=== PATIENT | male | born 1940 | race Caucasian/White ===

== ENCOUNTER 2019-03-30 19:31 | Inpatient (IN) ==
[2019-03-30] MEDS ORDERED: SODIUM CHLORIDE 0.9% 500 ML IV ONE (19:36)
[2019-03-30] MEDS ORDERED: ASPIRIN CHEW 324 MG ONE (19:40)
[2019-03-30] MEDS ORDERED: ASPIRIN CHEW 324 MG PO STA (19:41)
[2019-03-30] MEDS ORDERED: fentaNYL citrate 100 MCG/2 ML VIAL IV STA ×2 (19:41→20:02)
[2019-03-30] MEDS ORDERED: fentaNYL citrate 100 MCG/2 ML VIAL ONE ×2 (19:42→20:03)
[2019-03-30] MEDS ORDERED: TICAGRELOR 90 MG TAB PO ONE (19:44)
[2019-03-30] MEDS ORDERED: HEPARIN SOD (PORCINE) 1000 UNIT/ML 10 ML VIAL IV ONE (19:44)
--- NOTE | 2019-03-30 19:55 | XRay Report ---
XR chest 1V portable CLINICAL HISTORY: Chest Pain dyspnea COMPARISON STUDY: No previous studies for comparison. FINDINGS: Unremarkable cardiac shadow. Slight interstitial prominence bilaterally. No focal infiltrat e. Diaphragms are smooth. IMPRESSION: Slight interstitial prominence potentially indicative of mild bronchitis. The above report was generated using voice recognition software. It may contain grammatical, syntax or spelling errors. Electronically signed by: Jordy Rhoades M.D. 03/30/2019 7:53 PM
[2019-03-30 20:00] LABS: Basophils # (auto) 0.01 K/uL (0-0.2); Basophils % (auto) 0.1 %; Eosinophils # (auto) 0.16 K/uL (0-0.5); Eosinophils % (auto) 1.4 %; Hematocrit (blood only) 42.3 % (42-52); Hemoglobin 14.1 g/dL (14.0-18.0); Immature Granulocytes # (auto) 0.03 K/uL (0.00-0.02); Immature Granulocytes % (auto) 0.3 %; Lymphocytes # (auto) 3.07 K/uL (1.2-3.4); Lymphocytes % (auto) 27.2 %; Mean Corpuscular Hemoglobin 31.9 pg (25-34); Mean Corpuscular Hgb Conc 33.3 g/dL (32-36); Mean Corpuscular Volume 95.7 fL (80-100); Mean Platelet Volume 9.7 fL (7.4-10.4); Monocytes # (auto) 0.89 K/uL (0.11-0.59); Monocytes % (auto) 7.9 %; Neutrophils # (auto) 7.14 K/uL (1.4-6.5); Neutrophils % (auto) 63.1 %; Platelet Count 184 K/uL (130-400); RDW Coefficient of Variation 14.9 % (11.5-14.5); RDW Standard Deviation 52.6 fL (36.4-46.3); Red Blood Count 4.42 M/uL (4.7-6.1)
[2019-03-30 20:02] LABS: iSTAT Hemoglobin 14.6 g/dl (14.0-18.0); iSTAT Ionized Calcium 1.24 mmol/l (1.12-1.32); iSTAT Potassium 3.9 mEq/L (3.3-5.0)
[2019-03-30] MEDS ORDERED: HEPARIN (PORCINE) 1000 UNIT/ML 10 ML (CATH LAB USE ONLY) ONE (20:02)
[2019-03-30] MEDS ORDERED: NiCARDipine HCL INJ 2.5 MG/ML 10 ML AMP ONE (20:03)
[2019-03-30] MEDS ORDERED: NITROGLYCERIN/D5W 100MCG/ML 20ML SYR ONE (20:03)
[2019-03-30] MEDS ORDERED: MIDAZOLAM HCL 1 MG/ML 2ML VIAL ONE (20:03)
[2019-03-30 20:09] LABS: Prothrombin Time 10.7 Seconds (9.0-12.0)
[2019-03-30 20:16] LABS: Alanine Aminotransferase 37 U/L (12-78); Albumin Level 4.1 gm/dl (3.4-5.0); Aspartate Aminotransferase 32 U/L (15-37); BUN Creatinine Ratio 13.8 (10-20); Blood Urea Nitrogen 16 mg/dl (7-18); Calcium 9.5 mg/dl (8.5-10.1); Carbon Dioxide 27 mmol/L (21-32); Chloride 105 mmol/L (98-107); Est GFR (African American) 72.8; Est GFR (Non-African American) 62.8; Glucose 177 mg/dl (70-99); Lipase 73 U/L (73-393); Magnesium 1.6 mg/dl (1.8-2.4); Potassium 3.9 mmol/L (3.5-5.1); Sodium 138 mmol/L (136-145)
--- NOTE | 2019-03-30 20:18 | Pre Anesthesia Assessment ---
Date of Service March 30, 2019 Pre Sedation Assessment Vital Signs Temp Pulse Resp BP Pulse Ox 03/30/19 20:13 16 100 03/30/19 20:00 89 19 167/97 H 99 03/30/19 19:53 99 03/30/19 19:49 89 23 166/89 H 96 03/30/19 19:45 94 H 18 03/30/19 19:42 90 32 H 03/30/19 19:40 90 24 173/94 H 03/30/19 19:31 97.3 F L 83 18 179/82 H 96 Cardiovascular RRR, no murmur, no edema Respiratory normal respiratory effort, lungs clear to auscultation Pre-Sedation Airway Assessment Smoking Status: Current every day smoker Hx Sleep Apnea: No Hx Difficult Intubation: No Short, Thick Neck: No Thyromental Distance: > or= 3.5 Finger Breadths Oral Cavity: + WNL Mallampati Class: III ASA: ASA4 Procedure Planning Contraindications for Sedation: none Current Medications Reviewed: Yes Notes The planned sedation has been discussed with the patient. Informed Consent was obtained. I have identified the patient, determined the appropriateness of sedation and have assessed the patient immediately prior to the procedure. All medicine(s) and interventions are by my order.
[2019-03-30 20:21] LABS: Albumin Globulin Ratio 1.2 (0.9-2); Alkaline Phosphatase 98 U/L (45-117); Bilirubin,Total 0.5 mg/dl (0.2-1); Globulin 3.4 gm/dl (2.5-4.0); Phosphorus 1.6 mg/dl (2.5-4.9); Total Protein 7.5 gm/dl (6.4-8.2); Troponin I 0.015 ng/ml (0-0.045)
--- NOTE | 2019-03-30 20:25 | Cardiology Consultation ---
Date of Consultation March 30, 2019 Assessment & Plan (1) ST elevation myocardial infarction (STEMI): Presentation consistent with inferior STEMI and recommend proceeding with emergent cardiac catheterization and likely primary PCI. No apparent contraindications to procedure. Discussed risks, benefits, alternatives of procedure with patient and they are willing to proceed. Further recommendations pending findings of coronary angiography. History of Present Illness History of Present Illness 78-year-old man here with acute chest pain and ECG concerning for acute CA. Patient seen emergently in the ED after heart alert activated on arrival. Past cardiac history remarkable for prior CA in May 2000 treated with PCI with bare-metal stent (3.0 x 23 MultiLink) to RCA. Prior cardiac care in [place] and has not been seen for years. Cardiac risk factors include hypertension, dyslipidemia, obesity and ongoing tobacco abuse (1 pack/day). Other medical issues include GERD, degenerative disc disease/lumbar stenosis with neuropathy post multiple laminectomies. Chest pain began approximately 2 hours prior to arrival while patient was out hunting. Describes substernal pressure reminiscent of prior CA and with associated nausea, shortness of breath. Pain improved with fentanyl and given aspirin in ED. Hemodynamically stable. EKG showed sinus rhythm with inferior ST elevations. Family history: Father had an CA in his 70s Social history: Ongoing tobacco abuse, 1 pack/day. 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 , with 2 sons. Allergies: Penicillins Allergies Allergy/AdvReac Type Severity Reaction Status Date / Time Penicillins Allergy Mild HIVES Verified 03/30/19 20:21 Sulfa (Sulfonamide Allergy Unknown UNKNOWN Verified 03/30/19 20:21 Antibiotics) Home Medications Home Medications Medication Instructions Recorded Confirmed Type allopurinol 300 mg PO DAILY 03/30/19 03/30/19 History amitriptyline 50 mg PO HS 03/30/19 03/30/19 History amlodipine 5 mg PO DAILY 03/30/19 03/30/19 History atorvastatin 20 mg PO HS 03/30/19 03/30/19 History cholecalciferol (vitamin D3) 5,000 unit PO DAILY 03/30/19 03/30/19 History [Vitamin D3] gabapentin 600 mg PO TID 03/30/19 03/30/19 History gemfibrozil 600 mg PO QAM 03/30/19 03/30/19 History hydrocodone-acetaminophen 1 tab PO Q6H PRN 03/30/19 03/30/19 History dlhftxrg-jco-AQ-lycopen-lutein 1 tab PO DAILY 03/30/19 03/30/19 History [Pradeepry Senior] naproxen 500 mg PO BID 03/30/19 03/30/19 History niacin 1,000 mg PO HS 03/30/19 03/30/19 History omeprazole 20 mg PO DAILY 03/30/19 03/30/19 History tamsulosin 0.4 mg PO QAM 03/30/19 03/30/19 History Patient History Medical History Myocardial infarction Surgical History H/O heart artery stent Social History Preferred Language: Slovenian Communication Ability: Effective Neighborhood Worker Required: No Beliefs That Will Affect Care: None marital status: Current Living Situation: Spouse Other Information That Helps Us Care for You: No Feels Safe at Home: Yes Smoking Status: Current every day smoker Tobacco Type: cigarettes ; Age Started Using Tobacco: 18 ; packs per day: 1 ; Do You Dip or Chew Tobacco: No ; Second Hand Exposure: No ; Tobacco Cessation Education Requested by Patient: No Hx Alcohol Use: No Hx Substance Use: No Review of Systems Review of Systems: Not obtained in the setting of emergent situation Physical Exam Physical Exam: General: Comfortable, no acute distress HEENT: Sclerae anicteric, mucous membranes moist Lungs: Clear to auscultation bilaterally, no rhonchi or wheezes Cardiac: Regular rate and rhythm, no murmurs. No JVD. Abdomen: Soft, nontender, nondistended, positive bowel sounds. Extremities: Warm, well perfused, no edema. 2+ radial pulses Skin: No rashes or lesions. Neuro: Nonfocal Psych: Alert orient x3, normal affect and mood Results & Data Vital Signs (Past 12 Hours) Vital Signs Temp Pulse Resp BP Pulse Ox 03/30/19 20:13 16 100 03/30/19 20:00 89 19 167/97 H 99 03/30/19 19:53 99 03/30/19 19:49 89 23 166/89 H 96 03/30/19 19:45 94 H 18 03/30/19 19:42 90 32 H 03/30/19 19:40 90 24 173/94 H 03/30/19 19:31 97.3 F L 83 18 179/82 H 96 PG Care Time/CCT Total # of Minutes Spent Total Time Spent with Patient: Total time spent is greater than 50% in coordination of care (as documented) at patient's floor/unit and/or counseling patient:
[2019-03-30] MEDS ORDERED: CALCIUM CHLORIDE 10% 10 ML SYR IV ONE (20:42)
[2019-03-30] MEDS ORDERED: LIDOCAINE 2% 20 MG/ML 5 ML SYR IV ONE (20:43)
[2019-03-30] MEDS ORDERED: ATROPINE SULFATE 0.1 MG/ML 10ML SYR IV ONE (20:43)
[2019-03-30] MEDS ORDERED: ONDANSETRON INJ 2 MG/ML 2 ML VIAL ONE (20:45)
[2019-03-30] MEDS ORDERED: ICU PROTOCOL FOR HYPERGLYCEMIA PRN (21:48)
--- NOTE | 2019-03-30 21:48 | Post Anesthesia Assessment ---
Date of Service March 30, 2019 Post Sedation Assessment Vital Signs Temp Pulse Resp BP Pulse Ox 03/30/19 20:13 16 100 03/30/19 20:00 89 19 167/97 H 99 03/30/19 19:53 99 03/30/19 19:49 89 23 166/89 H 96 03/30/19 19:45 94 H 18 03/30/19 19:42 90 32 H 03/30/19 19:40 90 24 173/94 H 03/30/19 19:31 97.3 F L 83 18 179/82 H 96 Recovery Score Activity: Moves 4 extremities Respiration: Deep Breath/Cough Circulation: +/-20% PreAnes Value Consciousness: Fully Awake Oxygen Saturation: O2 needed for >90% Discharge Sedation Level of Care: Fast Track Phase II Post Sedation Plan On clinical assessment, the patient appears to have tolerated the sedation without complications. Patient is recovering as anticipated. Patient will continue to be monitored by nursing and may be discharged when sedation discharge criteria are met per below protocol. Upon Completions of procedure up to 15 minutes continue every 5 minute vital signs and the P.A.R. score; then discharge to a Phase I or Fast Track to Phase II per the following guidelines: * Discharge Patient to appropriate Phase II area if PAR is 8 or greater or return to pre- procedure baseline. The post - procedure orders will be as directed. * If PAR score is less than 8 or not return to pre-procedure baseline then patient will follow Phase I monitoring till PAR is reached for Phase II. The Phase I may be done in procedure room or may call to secure a Phase I area. * If naloxone or flumazenil are used for reversal, hold in Phase I for continued monitoring from when last reversal dose was given for a minimum of 60 minutes or longer pending the nurse and/or physician discretion of patient condition before discharge to Phase II. Please call the Sedation Physician to re-evaluate and complete post-note for discharge to Phase II area. Do NOT discharge from procedure sedation or Phase 1 until post- sedation evaluation note is complete by procedure /sedation MD Sedation Discharge Instructions to be given to the patient at discharge to home.
[2019-03-30] MEDS ORDERED: ONDANSETRON INJ 2 MG/ML 2 ML VIAL IV PRN (21:52)
[2019-03-30] MEDS ORDERED: NITROGLYCERIN SL 0.4 MG/TAB TAB SL PRN (21:52)
[2019-03-30] MEDS ORDERED: ACETAMINOPHEN 325 MG TAB PO PRN (21:52)
[2019-03-30] MEDS ORDERED: SODIUM CHLORIDE 0.9% 1000ML 1,000 ML IV SCH (22:00)
--- NOTE | 2019-03-30 22:12 | Emergency Department Note ---
Entered by Sarah Beth Evans acting as a scribe for History of Present Illness General Chief complaint: Chest Pain Stated complaint: CHEST PAIN Time Seen by Provider: 03/30/19 19:35 Source: patient and family (son) Mode of arrival: ambulatory Limitations: no limitations History of Present Illness Provider complaint: Chest pain Onset (ago): hour(s) 2 Location: chest Pain Consistency: + other (worsening) Maximum Pain Intensity: 9 Current Pain Intensity: 9 Quality: + other (pain) Relieved By: + none Associated symptoms: no cough and no fever/chills Treatments prior to arrival: other (Tums) The patient is a 78 year old male with a history of a myocardial infarction about 12 years ago and a cardiac stent who presents to the Emergency Room with complaints of worsening chest pain starting 2 hours ago. Per son, he and the patient had just returned to [place] after hunting and were getting something to eat when the patient started complaining of chest pain. He states that the patient initially thought that the pain was secondary to indigestion, but since Tums did not improve it, he decided to bring the patient to the ED. He notes that the patient did not take aspirin prior to arrival. The patient currently rates his pain a 9/10. He indicates that he felt fine prior to today and has not experienced any fevers and cough. Per son, the patient was evaluated in [place] during his prior myocardial infarction before being transferred to [place]. He explains that the patient lives in [place]. 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 Home Medications Home Medications Medication Instructions Recorded Confirmed Type allopurinol 300 mg PO DAILY 03/30/19 03/30/19 History amitriptyline 50 mg PO HS 03/30/19 03/30/19 History amlodipine 5 mg PO DAILY 03/30/19 03/30/19 History atorvastatin 20 mg PO HS 03/30/19 03/30/19 History cholecalciferol (vitamin D3) 5,000 unit PO DAILY 03/30/19 03/30/19 History [Vitamin D3] gabapentin 600 mg PO TID 03/30/19 03/30/19 History gemfibrozil 600 mg PO QAM 03/30/19 03/30/19 History hydrocodone-acetaminophen 1 tab PO Q6H PRN 03/30/19 03/30/19 History ijkmhfou-fth-PU-lycopen-lutein 1 tab PO DAILY 03/30/19 03/30/19 History [Pradeepry Senior] naproxen 500 mg PO BID 03/30/19 03/30/19 History niacin 1,000 mg PO HS 03/30/19 03/30/19 History omeprazole 20 mg PO DAILY 03/30/19 03/30/19 History tamsulosin 0.4 mg PO QAM 03/30/19 03/30/19 History Allergies Allergy/AdvReac Type Severity Reaction Status Date / Time Penicillins Allergy Mild HIVES Verified 03/30/19 20:21 Sulfa (Sulfonamide Allergy Unknown UNKNOWN Verified 03/30/19 20:21 Antibiotics) Past Med/Surg History Medical History Myocardial infarction Surgical History H/O heart artery stent Social History Preferred Language: Greek Communication Ability: Effective [employer] Lab[employer] Required: No Beliefs That Will Affect Care: None marital status: Current Living Situation: Spouse Other Information That Helps Us Care for You: No Feels Safe at Home: Yes Smoking Status: Never smoker Do You Dip or Chew Tobacco: No ; Second Hand Exposure: No ; Tobacco Cessation Education Requested by Patient: No Hx Alcohol Use: No Hx Substance Use: No Review of Systems See HPI for pertinent positives & negatives. and A total of 10 systems reviewed and were otherwise negative Physical Exam Vital Signs Vital Signs - 24 hr 03/30/19 19:31 03/30/19 19:40 03/30/19 19:42 Temperature 36.3 C L Temperature Source Oral Pulse Rate 83 90 90 Pulse Rate from SpO2 Sensor Respiratory Rate 18 24 32 H Respiratory Effort / Characteristics Non-Labored Respiratory Depth Normal Blood Pressure 179/82 H 173/94 H Blood Pressure Mean 114 134 Pulse Oximetry 96 Oxygen Delivery Method Room Air Sepsis Recent Fever Within 48 Hours No Sepsis Action Taken by Nursing No Action Required 03/30/19 19:45 03/30/19 19:49 03/30/19 19:53 Temperature Temperature Source Pulse Rate 94 H 89 Pulse Rate from SpO2 Sensor 90 Respiratory Rate 18 23 Respiratory Effort / Characteristics Respiratory Depth Blood Pressure 166/89 H Blood Pressure Mean 108 Pulse Oximetry 96 99 Oxygen Delivery Method Room Air Sepsis Recent Fever Within 48 Hours Sepsis Action Taken by Nursing 03/30/19 20:00 03/30/19 20:13 Temperature Temperature Source Pulse Rate 89 Pulse Rate from SpO2 Sensor 88 Respiratory Rate 19 16 Respiratory Effort / Characteristics Respiratory Depth Blood Pressure 167/97 H Blood Pressure Mean 133 Pulse Oximetry 99 100 Oxygen Delivery Method Room Air Room Air Sepsis Recent Fever Within 48 Hours Sepsis Action Taken by Nursing GENERAL: Awake, alert, fatigued-appearing, uncomfortable. HENT: Normocephalic, atraumatic. Oropharynx with dry mucous membranes and otherwise unremarkable. EYES: Normal conjunctiva. Sclera non-icteric. NECK: Supple. No nuchal rigidity. FROM. No JVD. RESPIRATORY: CTAB. CARDIAC: Regular rate, normal rhythm. Extremities warm and well perfused. Pulses equal. ABDOMEN: Soft, non-distended. No tenderness to palpation. No rebound or guarding. No masses. RECTAL: Deferred. MUSCULOSKELETAL: Chest examination reveals no tenderness. The back is symmetrical on inspection without obvious abnormality. There is no CVA tenderness to palpation. No joint edema. LOWER EXTREMITIES: Calves are equal size bilaterally and non-tender. No edema. No discoloration. NEURO: Normal sensorium. No sensory or motor deficits noted. SKIN: No rash or jaundice noted. Course Course 1937: The patient was evaluated in room B10, and a complete history and physical examination were performed. 2004: I reviewed the patient's case with Dr. Sorensen - Interventional Cardiology, [facility]. Dr. Sorensen will evaluate the patient now. 2006: I reviewed the patient's case with Dr. Dale - Hospitalist, [facility] for likely admission to his service. 2210: Dr. Dale informed me that the patient had 2 stents placed, so he will evaluate the patient for further management. Consultations Consultation #1: I reviewed the patient's case with Dr. Sorensen - Interventional Cardiology, [facility]. Dr. Sorensen will evaluate the patient now. Time: 20:05 Consultation #2: I reviewed the patient's case with Dr. Dale - Hospitalaide, [facility] for likely admission to his service. Time: 20:07 Consultation #3: Dr. Dale informed me that the patient had 2 stents placed, so he will evaluate the patient for further management. Time: 22:10 Administered Medications Discontinued Medications Aspirin (Aspirin) Confirm Administered Dose 324 mg .ROUTE .STK-MED ONE Stop: 03/30/19 19:41 Last Admin: 03/30/19 19:48 Dose: Not Given Documented by: [id number] Aspirin (Aspirin) 324 mg PO NOW STA Stop: 03/30/19 19:42 Last Admin: 03/30/19 19:48 Dose: 324 mg Documented by: [id number] Atropine Sulfate (Atropine Sulfate) Confirm Administered Dose 1 mg IV .STK-MED ONE Stop: 03/30/19 20:44 Last Admin: 03/30/19 21:41 Dose: 0.5 mg Documented by: [id number] Fentanyl Citrate (Fentanyl Citrate) 50 mcg IV NOW STA Stop: 03/30/19 19:42 Last Admin: 03/30/19 19:45 Dose: 50 mcg Documented by: [id number] Fentanyl Citrate (Fentanyl Citrate) Confirm Administered Dose 100 mcg .ROUTE .STK-MED ONE Stop: 03/30/19 19:43 Last Admin: 03/30/19 19:46 Dose: Not Given Documented by: [id number] Fentanyl Citrate (Fentanyl Citrate) Confirm Administered Dose 100 mcg .ROUTE .STK-MED ONE Stop: 03/30/19 20:04 Last Admin: 03/30/19 21:40 Dose: 100 mcg Documented by: [id number] Heparin Sodium (Porcine) (Heparin Iv Bolus (Sprinkler Tender Use Only)) Confirm Admin istered Dose 10,000 units .ROUTE .STK-MED ONE Stop: 03/30/19 20:03 Last Admin: 03/30/19 21:39 Dose: 8,000 units Documented by: [id number] Heparin Sodium/Sodium Chloride (Heparin/Nss 1000 Unit/500ml Flush Bag) Confirm Administered Dose 3,000 units IV .STK-MED ONE Stop: 03/30/19 20:04 Last Admin: 03/30/19 21:40 Dose: 3,000 units Documented by: [id number] Sodium Chloride (Nss) 500 mls @ 999 mls/hr IV .Q31M ONE Stop: 03/30/19 20:06 Last Admin: 03/30/19 19:48 Dose: 999 mls/hr Documented by: [id number] Midazolam HCl (Versed) Confirm Administered Dose 2 mg .ROUTE .STK-MED ONE Stop: 03/30/19 20:04 Last Admin: 03/30/19 21:41 Dose: 2 mg Documented by: [id number] Nicardipine HCl (Cardene) Confirm Administered Dose 25 mg .ROUTE .STK-MED ONE Stop: 03/30/19 20:04 Last Admin: 03/30/19 21:40 Dose: 25 mg Documented by: [id number] Nitroglycerin/Dextrose (Nitroglycerin/D5w 100 Mcg/Ml 20ml Syringe) Confirm Administered Dose 2,000 mcg .ROUTE .STK-MED ONE Stop: 03/30/19 20:04 Last Admin: 03/30/19 21:41 Dose: 2,000 mcg Documented by: [id number] Ondansetron HCl (Zofran) Confirm Administered Dose 4 mg .ROUTE .STK-MED ONE Stop: 03/30/19 20:46 Last Admin: 03/30/19 21:41 Dose: 4 mg Documented by: [id number] Ticagrelor (Brilinta) 180 mg PO ONE ONE Stop: 03/30/19 19:45 Last Admin: 03/30/19 21:46 Dose: 180 mg Documented by: [id number] Critical Care Time Critical Care Time: Yes Total Critical Care Time: 37 I have personally spent 37 minutes of critical care time in the direct management of this patient. This includes bedside care, interpretation of diagnostic studies, and testing, discussion with consultants, patient, and fam perico members, and other required patient management activities. This 37 minutes is in excess of all separately billable procedures. Medical Decision Making Differential Diagnosis Differential diagnosis includes: cardiac ischemia, aortic dissection, pulmonary embolism, pneumonia, pneumothorax, musculoskeletal, infections, pericarditis, myocarditis, esophageal rupture, gastrointestinal, as well as others were entertained. Medical Records Attestation: I reviewed the patient's medical records. Home Medications Current Medication List: was personally reviewed by me Laboratory Data Attestation: I reviewed the patient's lab results. Result diagrams: 03/30/19 19:40 03/30/19 19:40 Lab Results 03/30/19 03/30/19 03/30/19 Range/Units 19:40 19:40 19:40 WBC 11.30 H (4.8-10.8) K/uL RBC 4.42 L (4.7-6.1) M/uL Hgb 14.1 (14.0-18.0) g/dL POC Hgb (14.0-18.0) g/dl Hct 42.3 (42-52) % POC Hct (42-52) % MCV 95.7 (80-100) fL MCH 31.9 (25-34) pg MCHC 33.3 (32-36) g/dL RDW Std Deviation 52.6 H (36.4-46.3) fL RDW Coeff of Ludivina 14.9 H (11.5-14.5) % Plt Count 184 (130-400) K/uL MPV 9.7 (7.4-10.4) fL Immature Gran % (Auto) 0.3 % Neut % (Auto) 63.1 % Lymph % (Auto) 27.2 % Sebastian % (Auto) 7.9 % Eos % (Auto) 1.4 % Baso % (Auto) 0.1 % Immature Gran # (Auto) 0.03 H (0.00-0.02) K/uL Neut # (Auto) 7.14 H (1.4-6.5) K/uL Lymph # (Auto) 3.07 (1.2-3.4) K/uL Sebastian # (Auto) 0.89 H (0.11-0.59) K/uL Eos # (Auto) 0.16 (0-0.5) K/uL Baso # (Auto) 0.01 (0-0.2) K/uL PT 10.7 (9.0-12.0) Seconds POC INR (0.9-1.1) INR 1.0 (0.9-1.1) POC Sodium (135-144) mEq/L Sodium 138 (136-145) mmol/L POC Potassium (3.3-5.0) mEq/L Potassium 3.9 (3.5-5.1) mmol/L POC Chloride (101-112) mEq/L Chloride 105 (98-107) mmol/L Carbon Dioxide 27 (21-32) mmol/L POC Total CO2 (24-31) mEq/l Anion Gap 6.0 (3-11) POC Anion Gap (16-25) mmol/L POC BUN (7-18) mg/dl BUN 16 (7-18) mg/dl Creatinine 1.13 (0.6-1.4) mg/dl POC Creatinine (0.6-1.3) mg/dl Est Cr Clr Drug Dosing Not Reportable Est GFR ( Amer) 72.8 Est GFR (Non-Af Amer) 62.8 BUN/Creatinine Ratio 13.8 (10-20) Glucose 177 H (70-99) mg/dl POC Glucose (other) (70-99) mg/dl Calcium 9.5 (8.5-10.1) mg/dl POC Ioniz Calcium Justyn (1.12-1.32) mmol/l Phosphorus 1.6 L (2.5-4.9) mg/dl Magnesium 1.6 L (1.8-2.4) mg/dl Total Bilirubin 0.5 (0.2-1) mg/dl AST 32 (15-37) U/L ALT 37 (12-78) U/L Alkaline Phosphatase 98 (45-117) U/L POC Troponin I (0-0.045) ng/ml Troponin I 0.015 (0-0.045) ng/ml Total Protein 7.5 (6.4-8.2) gm/dl Albumin 4.1 (3.4-5.0) gm/dl Globulin 3.4 (2.5-4.0) gm/dl Albumin/Globulin Ratio 1.2 (0.9-2) Lipase 73 (73-393) U/L Blood Type Antibody Screen 03/30/19 03/30/19 03/30/19 Range/Units 19:40 19:47 19:48 WBC (4.8-10.8) K/uL RBC (4.7-6.1) M/uL Hgb (14.0-18.0) g/dL POC Hgb 14.6 (14.0-18.0) g/dl Hct (42-52) % POC Hct 43 (42-52) % MCV (80-100) fL MCH (25-34) pg MCHC (32-36) g/dL RDW Std Deviation (36.4-46.3) fL RDW Coeff of Ludivina (11.5-14.5) % Plt Count (130-400) K/uL MPV (7.4-10.4) fL Immature Gran % (Auto) % Neut % (Auto) % Lymph % (Auto) % Sebastian % (Auto) % Eos % (Auto) % Baso % (Auto) % Immature Gran # (Auto) (0.00-0.02) K/uL Neut # (Auto) (1.4-6.5) K/uL Lymph # (Auto) (1.2-3.4) K/uL Sebastian # (Auto) (0.11-0.59) K/uL Eos # (Auto) (0-0.5) K/uL Baso # (Auto) (0-0.2) K/uL PT (9.0-12.0) Seconds POC INR (0.9-1.1) INR (0.9-1.1) POC Sodium 139 (135-144) mEq/L Sodium (136-145) mmol/L POC Potassium 3.9 (3.3-5.0) mEq/L Potassium (3.5-5.1) mmol/L POC Chloride 102 (101-112) mEq/L Chloride (98-107) mmol/L Carbon Dioxide (21-32) mmol/L POC Total CO2 28 (24-31) mEq/l Anion Gap (3-11) POC Anion Gap 14.0 L (16-25) mmol/L POC BUN 15 (7-18) mg/dl BUN (7-18) mg/dl Creatinine (0.6-1.4) mg/dl POC Creatinine 1.0 (0.6-1.3) mg/dl Est Cr Clr Drug Dosing Est GFR ( Amer) Est GFR (Non-Af Amer) BUN/Creatinine Ratio (10-20) Glucose (70-99) mg/dl POC Glucose (other) 179 H (70-99) mg/dl Calcium (8.5-10.1) mg/dl POC Ioniz Calcium Justyn 1.24 (1.12-1.32) mmol/l Phosphorus (2.5-4.9) mg/dl Magnesium (1.8-2.4) mg/dl Total Bilirubin (0.2-1) mg/dl AST (15-37) U/L ALT (12-78) U/L Alkaline Phosphatase (45-117) U/L POC Troponin I 0.03 (0-0.045) ng/ml Troponin I (0-0.045) ng/ml Total Protein (6.4-8.2) gm/dl Albumin (3.4-5.0) gm/dl Globulin (2.5-4.0) gm/dl Albumin/Globulin Ratio (0.9-2) Lipase (73-393) U/L Blood Type O Negative Antibody Screen NEGATIVE 03/30/19 Range/Units 19:56 WBC (4.8-10.8) K/uL RBC (4.7-6.1) M/uL Hgb (14.0-18.0) g/dL POC Hgb (14.0-18.0) g/dl Hct (42-52) % POC Hct (42-52) % MCV (80-100) fL MCH (25-34) pg MCHC (32-36) g/dL RDW Std Deviation (36.4-46.3) fL RDW Coeff of Ludivina (11.5-14.5) % Plt Count (130-400) K/uL MPV (7.4-10.4) fL Immature Gran % (Auto) % Neut % (Auto) % Lymph % (Auto) % Sebastian % (Auto) % Eos % (Auto) % Baso % (Auto) % Immature Gran # (Auto) (0.00-0.02) K/uL Neut # (Auto) (1.4-6.5) K/uL Lymph # (Auto) (1.2-3.4) K/uL Sebastian # (Auto) (0.11-0.59) K/uL Eos # (Auto) (0-0.5) K/uL Baso # (Auto) (0-0.2) K/uL PT (9.0-12.0) Seconds POC INR 1.1 (0.9-1.1) INR (0.9-1.1) POC Sodium (135-144) mEq/L Sodium (136-145) mmol/L POC Potassium (3.3-5.0) mEq/L Potassium (3.5-5.1) mmol/L POC Chloride (101-112) mEq/L Chloride (98-107) mmol/L Carbon Dioxide (21-32) mmol/L POC Total CO2 (24-31) mEq/l Anion Gap (3-11) POC Anion Gap (16-25) mmol/L POC BUN (7-18) mg/dl BUN (7-18) mg/dl Creatinine (0.6-1.4) mg/dl POC Creatinine (0.6-1.3) mg/dl Est Cr Clr Drug Dosing Est GFR ( Amer) Est GFR (Non-Af Amer) BUN/Creatinine Ratio (10-20) Glucose (70-99) mg/dl POC Glucose (other) (70-99) mg/dl Calcium (8.5-10.1) mg/dl POC Ioniz Calcium Justyn (1.12-1.32) mmol/l Phosphorus (2.5-4.9) mg/dl Magnesium (1.8-2.4) mg/dl Total Bilirubin (0.2-1) mg/dl AST (15-37) U/L ALT (12-78) U/L Alkaline Phosphatase (45-117) U/L POC Troponin I (0-0.045) ng/ml Troponin I (0-0.045) ng/ml Total Protein (6.4-8.2) gm/dl Albumin (3.4-5.0) gm/dl Globulin (2.5-4.0) gm/dl Albumin/Globulin Ratio (0.9-2) Lipase (73-393) U/L Blood Type Antibody Screen Imaging Data Radiologist's Impression: Radiology results as stated below per my review and the radiologist's interpretation: XR chest 1V portable CLINICAL HISTORY: Chest Pain dyspnea COMPARISON STUDY: No previous studies for comparison. FINDINGS: Unremarkable cardiac shadow. Slight interstitial prominence bi laterally. No focal infiltrate. Diaphragms are smooth. IMPRESSION: Slight interstitial prominence potentially indicative of mild bronchitis. The above report was generated using voice recognition software. It may contain grammatical, syntax or spelling errors. Electronically signed by: Jordy Rhoades M.D. 03/30/2019 7:53 PM ECG Data Attestation: I personally reviewed and interpreted this ECG as follows: Indication: + chest pain Rate (beats per minute): 82 Rhythm: + normal sinus ECG ST segments: + ST elevation (posteriorly and inferiorly) ECG Findings: + Other (QTC is 420); no PACs and no PVCs Blood Pressure Blood Pressure Findings: Elevated blood pressure Blood Pressure Disposition: further management by hospitalist BERTA Narrative The patient is a pleasant 78-year-old gentleman with a past medical history of CAD status post IN/PCI 5 years ago at [place] who presents emergency department with acute onset substernal chest pain when he was out hunting with his family prescribed. Of note, the patient denies being on any daily aspirin or Plavix. However he does take atorvastatin. On arrival the patient is uncomfortable but no acute distress, afebrile with blood pressure 170s/80s vital signs otherwise stable. EKG demonstrates inferior ST elevation IN with ST elevations inferiorly with reciprocal depressions in anterior leads. Heart alert was activated upon reviewing EKG findings. Patient was given 324 mg of oral aspirin. Chest x-ray was performed and was unremarkable without mediastinal enlargement. Heparin bolus and Ticagrelor were ordered and administered upon review with Dr. Sorensen, interventional cardiology, who evaluat ed the patient at the bedside and took the patient to the [facility]ink[facility]. Case was also discussed with Dr. Dale, [facility] [place], will be the admitting doctor following the patient's cardiac intervention. WBC 11, nonspecific. H/H and platelets within normal limits. Chemistry without acidosis. Creatinine 1.1. Phosphorus and magnesium both low at 1.6. Initial troponin detectable at 0.015. Continuous Cardiac Monitoring: Indication: Chest pain Rhythm: NSR Rate: 83 Other: 96% RA Impression & Plan ST elevation myocardial infarction (STEMI), History of coronary artery stent placement, History of hypertension, History of hyperlipidemia Discharge Plan Visit Data *Final* Discharge Date/Time: 03/30/19 20:13 Chief Complaint: Chest Pain Stated Complaint: CHEST PAIN ED Provider: Primitivo Ibarra Discharge Problem: ST elevation myocardial infarction (STEMI), History of coronary artery stent placement, History of hypertension, History of hyperlipidemia Patient Disposition: Admitted As Inpatient Discharge Instructions Interventions: ED Discharge Assessment Last Done: 03/30/19 20:13 Discharge Problem: ST elevation myocardial infarction (STEMI) Qualifiers: Involved coronary artery: unspecified coronary artery Qualified Code(s): I21.3 - ST elevation (STEMI) myocardial infarction of unspecified site The scribe's documentation has been prepared under my direction and personally reviewed by me in its entirety. I confirm that the note above accurately reflects all work, treatment, procedures, and medical decision making performed by me.
--- NOTE | 2019-03-30 22:15 | Cardiac Catheterization ---
[facility] Data: Director [employer] Cardiac Status Clinical evaluation leading to the procedure CAD Presenation: STEMI Anginal Classification: CCS IV Heart Failure: No Cardiogenic Shock within 24 Hours: No Cardiac Arrest within 24 Hours: No Imaging Studies Past 6 Months: No Stress Studies Past 6 Months: No Diagnostic Physicians Name: Antione Sorensen MD Status: Emergency Closure Device Percutaneous Entry Location: Radial Closure Device: Radial Band Recommendations: PCI without planned CABG PCI Indication: Immediate PCI for STEMI First Noted: First EKG Lesion Segment Name: mid RCA Culprit Artery: Yes Stenosis Prior to Rx (%): 100 Chronic Total Occlusion: No IVUS: No FFR: No Pre-Procedure DAPHNE Flow: 0 Previously Treated Lesion: Timeframe: greater than 2 years Treated with Stent: Yes In-Stent Restenosis: Yes Stent Type: Non-SAFIA Yes Lesion Complexity: High/C Lesion Length (mm): 40 Thrombus Present: Yes Bifurcation Lesion: No Guidewire Across Lesion: Stenosis Post-Procedure (%): 0% at site of occlusion. 20% distal Post-Procedure DAPHNE Flow: 3 Devices(s) Deployed: Yes Yes Intraprocedure Events Significant Disection: No Perforation: No Cardiac Cath Procedure Full Procedure Date March 30, 2019 Pre-Procedure Diagnosis Pre-Procedure Diagnosis: STEMI AUC Score AUC Score: 9 Post-Procedure Diagnosis Post-Procedure Diagnosis: Severe CAD, Successful PCI and Normal Intracardiac Pressures Procedure(s) Performed Procedure(s) Performed: Coronary Angiography, Left Heart Cath and Drug Eluting Stent Laboratory Technology Teacher Antione Sorensen MD Sock Examiner(s) Kristy Estimated Blood Loss Estimated Blood Loss: 20 Medication(s) Medication(s): Atropine, Fentanyl, Heparin, Lidocaine 1%, Nicardipine, Nitroglycerin and Versed Medication(s): Ticagrelor Summary of Findings Indication: STEMI/Heart Alert Access: 6 Fr right radial artery Catheters: Ikari 3.5 guide Findings: LM -medium caliber, luminal irregularities LAD -medium caliber, proximal luminal irregularities, mid segment angulated with 30 to 40% sequential stenosis, mild diffuse mid to distal disease as wraps around apex. Gives off to small diagonals with mild disease. Circumflex -50% ostial stenosis, gives off large OM1 followed by a small AV groove portion with luminal irregularities. OM1 with 50% proximal disease and 50 to 60% mid segment disease. RCA -large caliber, dominant, 100% acute mid occlusion just after takeoff of acute marginal. Prior mid to distal stent occluded. LVEDP -15 -- PCI -- Antithrombotic therapy: Heparin, ticagrelor Procedure: RCA cannulated with Ikari 3.5 guide Some difficulty crossing occlusion with BMW and menhaden vessel pilot 50 wire's. Eventually able to cross with Long whisper wire which was passed into distal vessel. With the aid of a guideliner 2.5 and 3.0 balloons were used to dilate from distal RCA all the way back to earlymid segment. With aid of a guideliner 3.0 x 38 mm [place] SAFIA was delivered to mid to distal RCA completely covering prior stent Stent post-dilated with 3.5 noncompliant balloon to high atmospheres. Mild residual stenosis in latemid segment despite high pressure inflation. Earlymid RCA segment stented with 3.5 x 18 mm [place] overlapping proximal aspect of initial stent Overlap dilated with stent balloon IC vasodilators administered for spasm Post procedure DAPHNE 3 flow, stent well expanded with mild residual stenosis and no apparent cardiac complications. Arterial Closure: TR band Summary: 1. Inferior STEMI/acute 100% occluded mid RCA 2. Mild to moderate multi-vessel non-culprit coronary artery disease -30 to 40% mid LAD disease 50% ostial circumflex, 50% proximal and mid segment disease in moderate caliber OM1 3. Normal intracardiac filling pressure 4. 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 Trend troponins until peak, Check Echo Uptitrate beta-aleah/POLI as BP allows High-dose statin Consult cardiac Rehab Hemodynamics Rest Ao:: 169/74/114 Final Ao: 113/64/87 LV: 134/15 Recommendations Recommendations: PCI without planned CABG Specimens Specimens: None Radiation Exposure (mGy) 5637 Contrast (mls) 95 Fluids (cc crystalloids) Fluids (cc crystalloids): 900 Drains Drains: none Anesthesia moderate Procedural Complication(s) None Disposition ICU I attest to the content of the Intraoperative Record and any orders documented therein. Any exceptions are noted below. [facility] Card Cath Procedure Codes Cardiac Catheterization Procedure 1: Cardiovascular Cath Procedures: 20084 Coronaries and LHC (+/-LV) Moderate Sedation Procedure 1: Sedation/Anesthesia: 78579 Mod Sedation by the same physician;Init15 Min Child Age 5 & Up Procedure 2: Sedation/Anesthesia: 51447 Mod Sedation by the same physician; Ea [id number] Minutes Stenting Procedure 1: Cardiovascular Stent Procedures: 41324 Perc transluminal revascularization of acute sub/total occl, aMI PG Care Time/CCT Total # of Minutes Spent Total Time Spent with Patient: Total time spent is greater than 50% in coordination of care (as documented) at patient's floor/unit and/or counseling patient:
--- NOTE | 2019-03-30 22:15 | Critical Care Consultation ---
Date of Consultation March 30, 2019 Assessment & Plan (1) Admitted to intensive care unit: Reason Critically Ill: 78-year-old male with acute inferior ST segment elevation myocardial infarction status post PTCA with SAFIA x2 to the RCA requiring close hemodynamic monitoring status post intervention. NEURO - * CAM ICU: NEGATIVE * Chronic low back pain with neuropathy. * Continue home Rx as needed. CARDIAC/VASCULAR - * Acute inferior STEMI s/p PTCA w/ DESx2 to the RCA: * ASCVD per typical. * Trend Trops * AM Echo * Encourage close cardiology f/u in the outpatient setting. * Encourage smoking cessation. * EKG (ED): NSR@82bpm, Inferior ST elevations inferiorly/laterally, QTc 420ms * Monitor on telemetry. RESPIRATORY - * Long standing smoking history. * Encourage cessation. GI/NUTRITION - * AHA Diet * Prophylaxis: Protonix RENAL/LYTES - * No significant electrolyte derangements. * IVF: NSS@100mL/hr for a total of 1000mL - * BPH * Continue home Rx as BP tolerates. ENDO - * No h/o DM or thyroid dz * BSGs per unit protocol. ISS --> gtt per unit policy. HEME - * Stable H&H * Monitor closely for s/s bleeding s/p intervention. ID - * No concerns for infectious contribution at this time. LINES/IV ACCESS - * PIVs x2 * RIGHT Radial TR Band DVT PROPHYLAXIS - * Hold s/p Heparin/Brilinta doses. DAPT to start tomorrow. * SCDs I have personally spent 35 minutes of critical care time in the direct management of this patient. This is a life/limb threatening event. This includes time spent evaluating patient, direct bedside care, chart review, placing orders, interpretation of diagnostic studies, discussion with consultants, patient, and family members, as well as other required patient management activities. This time is exclusive of all separately billable procedures, and teaching time and separate from and in addition to any other critical care service time. Thank you for allowing us to participate in the care of this patient. Please refer to my attending physician's documentation for any further recommendations. (2) ST elevation myocardial infarction (STEMI): (3) History of coronary artery stent placement: (4) S/P PTCA (percutaneous transluminal coronary angioplasty): (5) S/P drug eluting coronary stent placement: (6) HLD (hyperlipidemia): (7) CAD (coronary artery disease): (8) HTN (hypertension): History of Present Illness Attending Physician: Milton Dale MD History of Present Illness Patient is a 78-year-old male with a significant past medical history of coronary artery disease status post PTCA with bare-metal stent placement to the RCA in 2000 at [facility]. Additionally, the patient is with history of hypertension, hyperlipidemia, BPH, GERD, gouty arthropathy, lumbar spinal stenosis, and tobacco dependence. Patient was hunting earlier this evening and shortly after developed substernal chest pain with radiation to his LEFT-sided chest and neck. He states that he had persistent pain until stent placement. He rated his initial discomfort as 10/10. He currently denies any chest pain rating his pain is 0/10. During the episode of chest pain, he denied any shortness of breath, lightheadedness, dizziness, shortness of breath, pleuritic pain, nausea, or vomiting. Patient was made a heart alert and taken to the catheterization suite secondary to findings of acute inferior ST segment elevation myocardial infarction. Patient underwent successful PTCI with SAFIA x2 to the RCA. Procedure was otherwise uneventful. Upon evaluation in the ICU, the patient is awake, alert, and oriented. He of fers no complaints of pain at this time. Allergies Allergy/AdvReac Type Severity Reaction Status Date / Time Penicillins Allergy Mild HIVES Verified 03/30/19 20:21 Sulfa (Sulfonamide Allergy Unknown UNKNOWN Verified 03/30/19 20:21 Antibiotics) Home Medications Home Medications Medication Instructions Recorded Confirmed Type allopurinol 300 mg PO DAILY 03/30/19 03/30/19 History amitriptyline 50 mg PO HS 03/30/19 03/30/19 History amlodipine 5 mg PO DAILY 03/30/19 03/30/19 History atorvastatin 20 mg PO HS 03/30/19 03/30/19 History cholecalciferol (vitamin D3) 5,000 unit PO DAILY 03/30/19 03/30/19 History [Vitamin D3] gabapentin 600 mg PO TID 03/30/19 03/30/19 History gemfibrozil 600 mg PO QAM 03/30/19 03/30/19 History hydrocodone-acetaminophen 1 tab PO Q6H PRN 03/30/19 03/30/19 History wuxpvdwi-ymy-BX-lycopen-lutein 1 tab PO DAILY 03/30/19 03/30/19 History [Valeriano Senior] naproxen 500 mg PO BID 03/30/19 03/30/19 History niacin 1,000 mg PO HS 03/30/19 03/30/19 History omeprazole 20 mg PO DAILY 03/30/19 03/30/19 History tamsulosin 0.4 mg PO QAM 03/30/19 03/30/19 History Patient History Medical History Myocardial infarction Surgical History H/O heart artery stent Social History Preferred Language: Citizen Of [place] Communication Ability: Effective Tile Edger Required: No Beliefs That Will Affect Care: None marital status: Current Living Situation: Spouse Other Information That Helps Us Care for You: No Feels Safe at Home: Yes Smoking Status: Never smoker Do You Dip or Chew Tobacco: No ; Second Hand Exposure: No ; Tobacco Cessation Education Requested by Patient: No Hx Alcohol Use: No Hx Substance Use: No Review of Systems Review of Systems: A complete 10 point review of systems was reviewed with the patient with pertinent positives and negatives as per history of present illness. All else were negative. Physical Exam Physical Exam: VITAL SIGNS - Vital signs and nursing notes were reviewed. GENERAL - 78-year-old male stated age who is in no acute distress. Communicates well with provider and answers questions appropriately. HEAD - NC/AT. EYES - PERRL with EOMI bilaterally. Sclera anicteric. Palpebral conjunctiva pink and moist with no injection noted. EARS - No deformities of external structures noted on gross examination bilaterally. NOSE - Midline and without cyanosis. MOUTH/OROPHARYNX - Without perioral cyanosis. Buccal mucosa pink and dry and without leukoplakia. Tongue midline with equal elevation of palate bilaterally. NECK - Neck with FROM. Supple to palpation. LUNGS - Chest wall symmetric without accessory muscle use, intercostals retractions, or central cyanosis. Normal vesicular breath sounds CTA B/L. No wheezes, rales, or rhonchi appreciated. CARDIAC - RRR with S1/S2. No murmur, rubs, or gallops appreciated. No reproducible tenderness to palpation appreciated over the anterior chest wall. ABDOMEN - Abdominal contour protuberant without pulsations or visible masses. BS normoactive all four quadrants. No tenderness, palpable masses, hepatosplenomegaly, or ascites noted. EXTREMITIES - No clubbing or peripheral cyanosis. No pretibial edema present. +3/5 radial and dorsalis pedis pulses palpated throughout. +5/5 strength noted in UE/LE bilaterally. NEUROLOGIC - Cranial nerves II through XII grossly intact. Sensory intact to light touch throughout. PSYCH - A&Ox3 and cooperates fully with examiner. Pt is very pleasant and interacts well with examiner. Results & Data Vital Signs (Past 12 Hours) Vital Signs Temp Pulse Resp BP Pulse Ox 03/30/19 20:13 16 100 03/30/19 20:00 89 19 167/97 H 99 03/30/19 19:53 99 03/30/19 19:49 89 23 166/89 H 96 03/30/19 19:45 94 H 18 03/30/19 19:42 90 32 H 03/30/19 19:40 90 24 173/94 H 03/30/19 19:31 36.3 C L 83 18 179/82 H 96 Coding Level of Care Code Critical Care 1st 30-74 mins Diagnoses Admitted to intensive care unit Z78.9 ST elevation myocardial infarction (STEMI) I21.3 History of coronary artery stent placement Z95.5 S/P PTCA (percutaneous transluminal coronary angioplasty) Z98.61 S/P drug eluting coronary stent placement Z95.5 HLD (hyperlipidemia) E78.5 CAD (coronary artery disease) I25.10 HTN (hypertension) I10 Time Spent (min) 35
--- NOTE | 2019-03-30 23:08 | History & Physical Report ---
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 He notes the chest pain occurred while eating dinner after hunting today and did radiate to his L arm and was associated with some nausea and dyspnea. Dr. Epstein is his staff physical therapy assistant in [facility] but he notes he has not followed up in several years. EKG on arrival concerning for STEMI; pt taken to [facility] leaf lab[facility] by Dr. Sorensen, found to have acute 100% occluded mid RCA. Underwent successful PCI of mid to distal RCA with 2 overlapping drug-eluting stents. Pt now asymptomatic on assessment in ICU. Allergies Allergy/AdvReac Type Severity Reaction Status Date / Time Penicillins Allergy Mild HIVES Verified 03/30/19 20:21 Sulfa (Sulfonamide Allergy Unknown UNKNOWN Verified 03/30/19 20:21 Antibiotics) Home Medications Home Medications Medication Instructions Recorded Confirmed Type allopurinol 300 mg PO DAILY 03/30/19 03/30/19 History amitriptyline 50 mg PO HS 03/30/19 03/30/19 History amlodipine 5 mg PO DAILY 03/30/19 03/30/19 History atorvastatin 20 mg PO HS 03/30/19 03/30/19 History cholecalciferol (vitamin D3) 5,000 unit PO DAILY 03/30/19 03/30/19 History [Vitamin D3] gabapentin 600 mg PO TID 03/30/19 03/30/19 History gemfibrozil 600 mg PO QAM 03/30/19 03/30/19 History hydrocodone-acetaminophen 1 tab PO Q6H PRN 03/30/19 03/30/19 History wpnxefcr-enx-UH-lycopen-lutein 1 tab PO DAILY 03/30/19 03/30/19 History [Sentry Senior] naproxen 500 mg PO BID 03/30/19 03/30/19 History niacin 1,000 mg PO HS 03/30/19 03/30/19 History omeprazole 20 mg PO DAILY 03/30/19 03/30/19 History tamsulosin 0.4 mg PO QAM 03/30/19 03/30/19 History Past Med/Surg History Medical History Myocardial infarction Surgical History H/O heart artery stent Social History Preferred Language: Swedish Communication Ability: Effective Parts Picker Required: No Beliefs That Will Affect Care: None marital status: Current Living Situation: Spouse Other Information That Helps Us Care for You: No Feels Safe at Home: Yes Smoking Status: Current every day smoker Tobacco Type: cigarettes ; Age Started Using Tobacco: 18 ; packs per day: 1 ; Do You Dip or Chew Tobacco: No ; Second Hand Exposure: No ; Tobacco Cessation Education Requested by Patient: No Hx Alcohol Use: No Hx Substance Use: No Review of Systems Review of Systems: All systems reviewed & are unremarkable except as noted in HPI & below 10 systems reviewed and negative. Physical Exam Constitutional: WD/WN, vitals as above + morbidly obese Eyes: PERRL, conjunctivae normal, anicteric sclerae ENMT: external ear and nose normal, oropharynx normal Neck: normal visual inspection Respiratory: normal respiratory effort, lungs clear to auscultation Cardiovascular: Rate/Rhythm: regular rate and regular rhythm Extremities: + edema (trace bilaterally) Gastrointestinal (Abdomen): normal bowel sounds, soft, nontender, no hepatosplenomegaly Inspection/Auscultation: + abdomen distended Musculoskeletal: no cyanosis or clubbing, extremities motor strength 5/5 Skin: no rashes, warm and dry Neurologic: PERRL, EOMI, accommodation nl, no face palsy, no dysarthria Psychiatric: A+Ox3, euthymic affect Results & Data Vital Signs (Past 12 Hours) Vital Signs Temp Pulse Pulse Resp BP BP Pulse Ox 03/30/19 22:45 86 20 159/107 H 97 03/30/19 22:30 85 20 159/95 H 97 03/30/19 22:26 97.5 F L 88 20 155/90 H 95 03/30/19 22:15 86 20 146/85 H 94 03/30/19 21:59 97.5 F L 88 20 155/90 H 95 03/30/19 20:13 16 100 03/30/19 20:00 89 19 167/97 H 99 03/30/19 19:53 99 03/30/19 19:49 89 23 166/89 H 96 03/30/19 19:45 94 H 18 03/30/19 19:42 90 32 H 03/30/19 19:40 90 24 173/94 H 03/30/19 19:31 97.3 F L 83 18 179/82 H 96 Laboratory Results 03/30/19 03/30/19 03/30/19 Range/Units 22:15 19:56 19:48 WBC (4.8-10.8) K/uL RBC (4.7-6.1) M/uL Hgb (14.0-18.0) g/dL POC Hgb (14.0-18.0) g/dl Hct (42-52) % POC Hct (42-52) % MCV (80-100) fL MCH (25-34) pg MCHC (32-36) g/dL RDW Std Deviation (36.4-46.3) fL RDW Coeff of Ludivina (11.5-14.5) % Plt Count (130-400) K/uL MPV (7.4-10.4) fL Immature Gran % (Auto) % Neut % (Auto) % Lymph % (Auto) % Sierra % (Auto) % Eos % (Auto) % Baso % (Auto) % Immature Gran # (Auto) (0.00-0.02) K/uL Neut # (Auto) (1.4-6.5) K/uL Lymph # (Auto) (1.2-3.4) K/uL Sierra # (Auto) (0.11-0.59) K/uL Eos # (Auto) (0-0.5) K/uL Baso # (Auto) (0-0.2) K/uL PT (9.0-12.0) Seconds POC INR 1.1 (0.9-1.1) INR (0.9-1.1) POC Sodium (135-144) mEq/L Sodium (136-145) mmol/L POC Potassium (3.3-5.0) mEq/L Potassium (3.5-5.1) mmol/L POC Chloride (101-112) mEq/L Chloride (98-107) mmol/L Carbon Dioxide (21-32) mmol/L POC Total CO2 (24-31) mEq/l Anion Gap (3-11) POC Anion Gap (16-25) mmol/L POC BUN (7-18) mg/dl BUN (7-18) mg/dl Creatinine (0.6-1.4) mg/dl POC Creatinine (0.6-1.3) mg/dl Est Cr Clr Drug Dosing Est GFR ( Amer) Est GFR (Non-Af Amer) BUN/Creatinine Ratio (10-20) Glucose (70-99) mg/dl POC Glucose (other) (70-99) mg/dl Calcium (8.5-10.1) mg/dl POC Ioniz Calcium Justyn (1.12-1.32) mmol/l Phosphorus (2.5-4.9) mg/dl Magnesium (1.8-2.4) mg/dl Total Bilirubin (0.2-1) mg/dl AST (15-37) U/L ALT (12-78) U/L Alkaline Phosphatase (45-117) U/L POC Troponin I 0.03 (0-0.045) ng/ml Troponin I (0-0.045) ng/ml Total Protein (6.4-8.2) gm/dl Albumin (3.4-5.0) gm/dl Globulin (2.5-4.0) gm/dl Albumin/Globulin Ratio (0.9-2) Lipase (73-393) U/L Nasal Screen MRSA (PCR) Negative (Negative) Blood Type Antibody Screen 03/30/19 03/30/19 03/30/19 Range/Units 19:47 19:40 19:40 WBC (4.8-10.8) K/uL RBC (4.7-6.1) M/uL Hgb (14.0-18.0) g/dL POC Hgb 14.6 (14.0-18.0) g/dl Hct (42-52) % POC Hct 43 (42-52) % MCV (80-100) fL MCH (25-34) pg MCHC (32-36) g/dL RDW Std Deviation (36.4-46.3) fL RDW Coeff of Ludivina (11.5-14.5) % Plt Count (130-400) K/uL MPV (7.4-10.4) fL Immature Gran % (Auto) % Neut % (Auto) % Lymph % (Auto) % Sierra % (Auto) % Eos % (Auto) % Baso % (Auto) % Immature Gran # (Auto) (0.00-0.02) K/uL Neut # (Auto) (1.4-6.5) K/uL Lymph # (Auto) (1.2-3.4) K/uL Sierra # (Auto) (0.11-0.59) K/uL Eos # (Auto) (0-0.5) K/uL Baso # (Auto) (0-0.2) K/uL PT 10.7 (9.0-12.0) Seconds POC INR (0.9-1.1) INR 1.0 (0.9-1.1) POC Sodium 139 (135-144) mEq/L Sodium (136-145) mmol/L POC Potassium 3.9 (3.3-5.0) mEq/L Potassium (3.5-5.1) mmol/L POC Chloride 102 (101-112) mEq/L Chloride (98-107) mmol/L Carbon Dioxide (21-32) mmol/L POC Total CO2 28 (24-31) mEq/l Anion Gap (3-11) POC Anion Gap 14.0 L (16-25) mmol/L POC BUN 15 (7-18) mg/dl BUN (7-18) mg/dl Creatinine (0.6-1.4) mg/dl POC Creatinine 1.0 (0.6-1.3) mg/dl Est Cr Clr Drug Dosing Est GFR ( Amer) Est GFR (Non-Af Amer) BUN/Creatinine Ratio (10-20) Glucose (70-99) mg/dl POC Glucose (other) 179 H (70-99) mg/dl Calcium (8.5-10.1) mg/dl POC Ioniz Calcium Justyn 1.24 (1.12-1.32) mmol/l Phosphorus (2.5-4.9) mg/dl Magnesium (1.8-2.4) mg/dl Total Bilirubin (0.2-1) mg/dl AST (15-37) U/L ALT (12-78) U/L Alkaline Phosphatase (45-117) U/L POC Troponin I (0-0.045) ng/ml Troponin I (0-0.045) ng/ml Total Protein (6.4-8.2) gm/dl Albumin (3.4-5.0) gm/dl Globulin (2.5-4.0) gm/dl Albumin/Globulin Ratio (0.9-2) Lipase (73-393) U/L Nasal Screen MRSA (PCR) (Negative) Blood Type O Negative Antibody Screen NEGATIVE 03/30/19 03/30/19 Range/Units 19:40 19:40 WBC 11.30 H (4.8-10.8) K/uL RBC 4.42 L (4.7-6.1) M/uL Hgb 14.1 (14.0-18.0) g/dL POC Hgb (14.0-18.0) g/dl Hct 42.3 (42-52) % POC Hct (42-52) % MCV 95.7 (80-100) fL MCH 31.9 (25-34) pg MCHC 33.3 (32-36) g/dL RDW Std Deviation 52.6 H (36.4-46.3) fL RDW Coeff of Ludivina 14.9 H (11.5-14.5) % Plt Count 184 (130-400) K/uL MPV 9.7 (7.4-10.4) fL Immature Gran % (Auto) 0.3 % Neut % (Auto) 63.1 % Lymph % (Auto) 27.2 % Sierra % (Auto) 7.9 % Eos % (Auto) 1.4 % Baso % (Auto) 0.1 % Immature Gran # (Auto) 0.03 H (0.00-0.02) K/uL Neut # (Auto) 7.14 H (1.4-6.5) K/uL Lymph # (Auto) 3.07 (1.2-3.4) K/uL Sierra # (Auto) 0.89 H (0.11-0.59) K/uL Eos # (Auto) 0.16 (0-0.5) K/uL Baso # (Auto) 0.01 (0-0.2) K/uL PT (9.0-12.0) Seconds POC INR (0.9-1.1) INR (0.9-1.1) POC Sodium (135-144) mEq/L Sodium 138 (136-145) mmol/L POC Potassium (3.3-5.0) mEq/L Potassium 3.9 (3.5-5.1) mmol/L POC Chloride (101-112) mEq/L Chloride 105 (98-107) mmol/L Carbon Dioxide 27 (21-32) mmol/L POC Total CO2 (24-31) mEq/l Anion Gap 6.0 (3-11) POC Anion Gap (16-25) mmol/L POC BUN (7-18) mg/dl BUN 16 (7-18) mg/dl Creatinine 1.13 (0.6-1.4) mg/dl POC Creatinine (0.6-1.3) mg/dl Est Cr Clr Drug Dosing Not Reportable Est GFR ( Amer) 72.8 Est GFR (Non-Af Amer) 62.8 BUN/Creatinine Ratio 13.8 (10-20) Glucose 177 H (70-99) mg/dl POC Glucose (other) (70-99) mg/dl Calcium 9.5 (8.5-10.1) mg/dl POC Ioniz Calcium Justyn (1.12-1.32) mmol/l Phosphorus 1.6 L (2.5-4.9) mg/dl Magnesium 1.6 L (1.8-2.4) mg/dl Total Bilirubin 0.5 (0.2-1) mg/dl AST 32 (15-37) U/L ALT 37 (12-78) U/L Alkaline Phosphatase 98 (45-117) U/L POC Troponin I (0-0.045) ng/ml Troponin I 0.015 (0-0.045) ng/ml Total Protein 7.5 (6.4-8.2) gm/dl Albumin 4.1 (3.4-5.0) gm/dl Globulin 3.4 (2.5-4.0) gm/dl Albumin/Globulin Ratio 1.2 (0.9-2) Lipase 73 (73-393) U/L Nasal Screen MRSA (PCR) (Negative) Blood Type Antibody Screen Code Status & VTE Plan VTE Prophylaxis Plan VTE Prophylaxis will be ordered: Yes Critical Care Time Critical Care Time: Yes Total Critical Care Time: 40 Total critical care time was 40 minutes Supervising Physician Co-Signing Physician Notes Attending addendum: I have physically seen this patient, have supervised the medical residents activities, and agree with the H&P unless as otherwise noted. Assessment and Plan: STEMI/status post PTCA with SAFIA placement x2/hypertension/hyperlipidemia- Admitted to intensive care unit postprocedure. Specific orders post stent per Dr. Jamin Sorensen, interventional cardiology. Hold amlodipine. Placed on Metoprolol tartrate and lisinopril per cardiology as noted. Avoid NSAIDs. Dual antiplatelet therapy for at least one year. Tobacco cessation encouraged. Change atorvastatin from 20 to 40 mg p.o. daily for high-dose therapy. Remainder of orders and notations as noted. Resident Activity Tracking Resident Involvement: Resident Care Provided Care Provided: Adult Hospital Medicine (1) ST elevation myocardial infarction (STEMI) Involved coronary artery: unspecified coronary artery Qualified Code(s): I21.3 - ST elevation (STEMI) myocardial infarction of unspecified site
[2019-03-31 04:29] LABS: Basophils # (auto) 0.01 K/uL (0-0.2); Basophils % (auto) 0.1 %; Eosinophils # (auto) 0.06 K/uL (0-0.5); Eosinophils % (auto) 0.6 %; Hematocrit (blood only) 39.5 % (42-52); Hemoglobin 13.4 g/dL (14.0-18.0); Immature Granulocytes # (auto) 0.02 K/uL (0.00-0.02); Immature Granulocytes % (auto) 0.2 %; Lymphocytes % (auto) 24.9 %; Mean Corpuscular Hgb Conc 33.9 g/dL (32-36); Mean Corpuscular Volume 94.3 fL (80-100); Mean Platelet Volume 9.6 fL (7.4-10.4); Monocytes # (auto) 0.78 K/uL (0.11-0.59); Monocytes % (auto) 8.4 %; Neutrophils # (auto) 6.07 K/uL (1.4-6.5); Neutrophils % (auto) 65.8 %; Platelet Count 153 K/uL (130-400); RDW Standard Deviation 51.4 fL (36.4-46.3); Red Blood Count 4.19 M/uL (4.7-6.1); White Blood Count 9.24 K/uL (4.8-10.8)
[2019-03-31 05:07] LABS: Magnesium 1.6 mg/dl (1.8-2.4); Troponin I 92.9 ng/ml (0-0.045)
[2019-03-31 05:14] LABS: Phosphorus 3.7 mg/dl (2.5-4.9)
[2019-03-31] MEDS ORDERED: MAGNESIUM SULFATE / D5W 1 GM/100 ML BAG IV ONE ×2 (05:31→13:45)
[2019-03-31 06:53] LABS: BUN Creatinine Ratio 12.8 (10-20); Calcium 9.4 mg/dl (8.5-10.1); Creatinine Clr Calc Pharmacy 82.3 ml/min; Est GFR (African American) 87.5; Est GFR (Non-African American) 75.5; Potassium 3.8 mmol/L (3.5-5.1)
--- NOTE | 2019-03-31 07:37 | Critical Care Progress Note ---
Date of Service March 31, 2019 Assessment & Plan (1) Admitted to intensive care unit: Impression: 78-year-old male with history of coronary disease presenting with acute inferior myocardial infarction status post cardiac catheterization with stent placement to distal RCA. He is being observed in the ICU. He is hemodynamically stable and is chest pain-free currently. Recommendations: 1. Acute coronary syndrome: Patient is pain-free. Continue to trend troponins. Follow-up echocardiogram pending. Continue aspirin and ticagrelor. Continue telemetry. Cardiac rehab as outpatient. Transfer to the floor when cleared by cardiology 2. Hypertension/hyperlipidemia: We will increase metoprolol to 50 mg twice daily and increase lisinopril to 10 daily. Continue statin therapy 3. Gout: Continue allopurinol. 4. Probable sleep disordered breathing: Witnessed apnea and significant snoring observed by nursing staff overnight when patient is sleeping. Recommend outpatient overnight attended polysomnography. 5. Hyperglycemia: Hemoglobin A1c pending. Continue sliding scale insulin. 6. (2) ST elevation myocardial infarction (STEMI): (3) HTN (hypertension): (4) CAD (coronary artery disease): (5) Current every day smoker: Subjective Patient seen and examined. Discussed with critical care ANEUDY. Patient and updated at bedside. Patient is sitting up eating breakfast. He denies any chest pain or palpitations. No significant shortness of breath. No lower extremity edema. States he feels quite well. Review of Systems Review of Systems: Unchanged from prior Physical Exam Physical Exam: VITAL SIGNS - Vital signs and nursing notes were reviewed. GENERAL - 78-year-old male stated age who is in no acute distress. Communicates well with provider and answers questions appropriately. HEAD - NC/AT. EYES - PERRL with EOMI bilaterally. Sclera anicteric. Palpebral conjunctiva pink and moist with no injection noted. EARS - No deformities of external structures noted on gross examination bilaterally. NOSE - Midline and without cyanosis. MOUTH/OROPHARYNX - Without perioral cyanosis. Buccal mucosa pink and dry and without leukoplakia. Tongue midline with equal elevation of palate bilaterally. NECK - Neck with FROM. Supple to palpation. LUNGS - Chest wall symmetric without accessory muscle use, intercostals retractions, or central cyanosis. Normal vesicular breath sounds CTA B/L. No wheezes, rales, or rhonchi appreciated. CARDIAC - RRR with S1/S2. No murmur, rubs, or gallops appreciated. No reproducible tenderness to palpation appreciated over the anterior chest wall. ABDOMEN - Abdominal contour protuberant without pulsations or visible masses. BS normoactive all four quadrants. No tenderness, palpable masses, hepatos plenomegaly, or ascites noted. EXTREMITIES - No clubbing or peripheral cyanosis. No pretibial edema present. +3/5 radial and dorsalis pedis pulses palpated throughout. +5/5 strength noted in UE/LE bilaterally. NEUROLOGIC - Cranial nerves II through XII grossly intact. Sensory intact to light touch throughout. PSYCH - A&Ox3 and cooperates fully with examiner. Pt is very pleasant and interacts well with examiner. Results & Data Vital Signs (Past 12 Hours) Vital Signs Temp Pulse Pulse Resp BP BP Pulse Ox 03/31/19 06:00 70 18 142/79 H 94 03/31/19 05:00 72 24 152/91 H 98 03/31/19 04:15 74 22 146/96 H 99 03/31/19 04:00 36.8 C 74 21 146/93 H 99 03/31/19 03:30 79 20 151/84 H 97 03/31/19 03:00 79 20 153/83 H 95 03/31/19 02:30 76 21 147/84 H 98 03/31/19 02:00 77 21 158/73 H 98 03/31/19 01:45 76 22 151/85 H 97 03/31/19 01:31 80 18 96 03/31/19 01:30 79 24 144/91 H 96 03/31/19 01:15 79 21 157/87 H 97 03/31/19 01:00 78 17 147/116 H 96 03/31/19 00:45 82 17 166/87 H 97 03/31/19 00:30 78 20 163/86 H 96 03/31/19 00:15 77 22 153/90 H 97 03/31/19 00:00 36.8 C 88 24 153/93 H 98 03/30/19 23:45 82 23 151/88 H 98 03/30/19 23:30 82 20 156/92 H 96 03/30/19 23:15 78 20 159/88 H 98 03/30/19 23:00 82 18 155/93 H 98 03/30/19 22:45 86 20 159/107 H 97 03/30/19 22:30 85 20 159/95 H 97 03/30/19 22:26 36.4 C L 88 20 155/90 H 95 03/30/19 22:15 86 20 146/85 H 94 03/30/19 21:59 36.4 C L 88 20 155/90 H 95 03/30/19 20:13 16 100 03/30/19 20:00 89 19 167/97 H 99 03/30/19 19:53 99 03/30/19 19:49 89 23 166/89 H 96 03/30/19 19:45 94 H 18 03/30/19 19:42 90 32 H 03/30/19 19:40 90 24 173/94 H Laboratory Results 03/31/19 04:12 03/31/19 06:26 Diagnostic Findings Chest x-ray from 03/30/2019 was independently reviewed. Lungs are mildly hypoinflated with slightly low lung volumes. No acute airspace opacity, pleural effusion, or increased interstitial markings are identified. Coding Level of Care Code 57916 Subseq Hosp Care Lvl 2 Diagnoses Admitted to intensive care unit Z78.9 ST elevation myocardial infarction (STEMI) I21.3 Involved coronary artery: unspecified coronary artery HTN (hypertension) I10 CAD (coronary artery disease) I25.10 Current every day smoker F17.200 (1) ST elevation myocardial infarction (STEMI) Involved coronary artery: unspecified coronary artery Qualified Code(s): I21. 3 - ST elevation (STEMI) myocardial infarction of unspecified site
[2019-03-31] MEDS ORDERED: PHARMACY GLYCEMIC MGMT CONSULT PRN (07:59)
[2019-03-31] MEDS: INSULIN ASPART 100 UNITS/ML 3 ML PEN SC SCH ×4 (08:07→20:57)
[2019-03-31] MEDS: ASPIRIN 81 MG ECTAB PO SCH (08:13)
[2019-03-31] MEDS: TICAGRELOR 90 MG TAB PO SCH ×2 (08:13→20:07)
[2019-03-31] MEDS: TAMSULOSIN HCL 0.4 MG CAP PO SCH (08:14)
[2019-03-31] MEDS: ATORVASTATIN 40 MG TAB PO SCH (08:14)
[2019-03-31] MEDS ORDERED: DEXTROSE 50% 50 ML SYRINGE IV PRN (08:15)
[2019-03-31] MEDS ORDERED: GLUCAGON FOR INJ 1 MG VIAL IM PRN (08:15)
[2019-03-31] MEDS: METOPROLOL TARTRATE 50 MG TAB PO SCH ×2 (08:15→20:07)
[2019-03-31] MEDS ORDERED: GLUCOSE 10 TABS/TUBE PO PRN (08:15)
[2019-03-31] MEDS ORDERED: CARBOHYDRATES FOR HYPOGLYCEMIA PO PRN (08:15)
[2019-03-31] MEDS ORDERED: GLUCOSE 40% GEL 15 GM TUBE PO PRN (08:15)
[2019-03-31] MEDS: GABAPENTIN 300 MG CAP PO SCH ×3 (08:16→20:08)
[2019-03-31] MEDS: PANTOprazole 40 MG TAB PO SCH (08:17)
[2019-03-31] MEDS: LISINOPRIL 10 MG TAB PO SCH (08:18)
[2019-03-31] MEDS: ALLOPURINOL 300 MG TAB PO SCH (08:19)
[2019-03-31] MEDS ORDERED: METOPROLOL TARTRATE 25 MG TAB PO SCH (09:00)
[2019-03-31] MEDS ORDERED: LISINOPRIL 5 MG TAB PO SCH (09:00)
--- NOTE | 2019-03-31 09:43 | Cardiology Progress Note ---
Date of Service March 31, 2019 Assessment & Plan (1) CAD (coronary artery disease): He has known coronary artery disease and risk factor modification will be essential to eliminate progression. He is going to follow-up in our office, he has not been seeing a pediatric care coordinator regularly recently. (2) ST elevation myocardial infarction (STEMI): He is doing well following his infarction, he feels well and his electric cardiogram shows evolution. (3) History of hyperlipidemia: He has a history of hyperlipidemia and was on atorvastatin 20 mg daily as well as gemfibrozil and niacin. Not sure why he was on this particular combination, he is now on atorvastatin 80 mg daily which hopefully will help with recurrence. He does have high triglycerides. Subjective He is resting comfortably in bed with his present in the room. He is feeling well this morning, he denies chest discomfort or shortness of breath. Physical Exam Physical Exam: Constitutional: Alert, cooperative and in no distress. Pulmonary: Clear to auscultation bilaterally. Cardiac: Regular rhythm with no murmur, gallop or rub. Abdomen: Soft, nontender with normal bowel sounds. Extremities: No edema. Skin: No rash, ecchymoses or petechiae. Results & Data Vital Signs (Past 12 Hours) Vital Signs Temp Pulse Pulse Resp BP BP Pulse Ox 03/31/19 09:00 68 19 138/76 96 03/31/19 08:00 37.1 C 67 20 151/81 H 96 03/31/19 07:00 71 18 147/91 H 96 03/31/19 06:00 70 18 142/79 H 94 03/31/19 05:00 72 24 152/91 H 98 03/31/19 04:15 74 22 146/96 H 99 03/31/19 04:00 36.8 C 74 21 146/93 H 99 03/31/19 03:30 79 20 151/84 H 97 03/31/19 03:00 79 20 153/83 H 95 03/31/19 02:30 76 21 147/84 H 98 03/31/19 02:00 77 21 158/73 H 98 03/31/19 01:45 76 22 151/85 H 97 03/31/19 01:31 80 18 96 03/31/19 01:30 79 24 144/91 H 96 03/31/19 01:15 79 21 157/87 H 97 03/31/19 01:00 78 17 147/116 H 96 03/31/19 00:45 82 17 166/87 H 97 03/31/19 00:30 78 20 163/86 H 96 03/31/19 00:15 77 22 153/90 H 97 03/31/19 00:00 36.8 C 88 24 153/93 H 98 03/30/19 23:45 82 23 151/88 H 98 03/30/19 23:30 82 20 156/92 H 96 03/30/19 23:15 78 20 159/88 H 98 03/30/19 23:00 82 18 155/93 H 98 03/30/19 22:45 86 20 159/107 H 97 03/30/19 22:30 85 20 159/95 H 97 03/30/19 22:26 36.4 C L 88 20 155/90 H 95 03/30/19 22:15 86 20 146/85 H 94 03/30/19 21:59 36.4 C L 88 20 155/90 H 95 Diagnostic Findings Electrocardiogram: His ECG on arrival demonstrates an acute inferolateral myocardial infarction with ST elevation. His electrocardiogram this morning shows inferolateral T wave inversion consistent with evolving myocardial infarction. Telemetry: Sinus rhythm with a gradual drop in heart rate since admission PG Care Time/CCT Total # of Minutes Spent Total Time Spent with Patient: Total time spent is greater than 50% in coordination of care (as documented) at patient's floor/unit and/or counseling patient: (1) ST elevation myocardial infarction (STEMI) Involved coronary artery: unspecified coronary artery Qualified Code(s): I21.3 - ST elevation (STEMI) myocardial infarction of unspecified site
--- NOTE | 2019-03-31 10:19 | Pharmacy Report ---
Glycemic Control Consultation - Date of Service March 31, 2019 - Scope Scope: Glycemic Pharmacist consulted by Dr Lyn on 03/31/19 for glycemic control and to write orders per [facility] inpatient glycemic control protocol - Objective Weight: 115.1 kg Accuchecks BSG (last 24hrs): 03/30/19 03/30/19 03/31/19 19:40 19:47 06:26 Glucose 177 H 159 H POC Glucose POC Glucose (other) 179 H 03/31/19 08:06 Glucose POC Glucose 134 H POC Glucose (other) Laboratory Data (last 24hrs): 03/30/19 03/31/19 19:40 06:26 Potassium 3.9 3.8 Carbon Dioxide 27 28 Anion Gap 6.0 4.0 Creatinine 1.13 0.97 Est Cr Clr Drug Dosing Not Reportable 82.3 - Recent Pertinent Medications Outpatient Anti-diabetic Regimen: * N/A Risk Factors for Insulin Resistance: * Recent Surgery: POD 1 for cardiac cath with stent * Diet: heart healthy - Assessment & Plan Assessment & Plan: ASSESSMENT: * Mr Hammonds is a 78 y/o M without a PMH of diabetes. Fasting blood sugar today around 159 mg/dL on PRP 134 mg/dL on POC. Patient's blood sugar yesterday was 179 mg/dL. No HbA1C. * No Lantus for now. No BSG over 180 mg/dL. Attempt to manage with Novolog for now. Novolog will be weight-based stress of 1 and 2 since patient is obese. * Recommends to come to tomorrow with HbA1C. PLAN FOR INPATIENT GLYCEMIC CONTROL: * Bolus insulin * NovoLog per scale ACHS or Q6hrs while NPO * Goal Range: Low 110 mg/dL - High 140 mg/dL * Correction Factor: 30 mg/dL/unit * Nutritional / Prandial insulin per carb ratio of 1 unit per 10 grams CHO consumed * Please note that the plan above was derived based on current level of insulin resistance and hospital stress. These recommendations are appropriate for inpatient admission only. Plan of care upon discharge will need to be reassessed to avoid potential outpatient hypo/hyperglycemia. Thank you.
--- NOTE | 2019-03-31 19:17 | Hospitalist Progress Note ---
Date of Service March 31, 2019 Assessment & Plan (1) ST elevation myocardial infarction (STEMI): Continue to monitor on PCU due to ongoing risk of arrhythmias ASA, Brillinta, Metoprolol, Lisinopril, Atorvastatin Glycemic control as per pharmacy management, would discontinue carb coverage if any glucose levels < 80. Suspect mild elevated on admission due to stress response from TN. HbA1C pending. LDL @ goal 70. Continue atorvastatin 80mg PO daily Smoking cessation as below Stop naproxen Appreciate ongoing cardiology management (2) Current every day smoker: Extensively counselled on importance of quitting smoking. Declines nicotine replacement products of medications at this time as was successful for 6 months quitting cold turkey after his last TN. Plans to quit cold turkey with his . (3) HTN (hypertension): BP/HR stable on current regimen with lisinopril and metoprolol Stop amlodipine to allow up titration of cardiac specific medication (may also help with reflux) (4) NSVT (nonsustained ventricular tachycardia): Aim Mg > 2, K > 4. Addition Mg sulphate 1g IV now. Start Mg Ox 400mg BID. (5) BPH (benign prostatic hyperplasia): Continue home dose tamsulosin (6) Gout: Continue home dose allopurinol (7) HLD (hyperlipidemia): Switched to atorvastatin 80mg PO daily No prior Hx triglyceride pancreatitis. Will d/c gemfibrozil and niacin. (8) GERD (gastroesophageal reflux disease): Unclear from his history if he still needs omeprazole detention as he gets no symptoms when he doesn't take it. No Hx GI bleed. However, advised to try and wean outside of acute TN setting as if he has recurrent chest pain will be difficult to tell if from reflux vs. cardiac. Continue pantoprazole while inpatient. (9) Chronic back pain: Under pain management with unsuccessful prior injections. Has some lumbar radicular symptoms on right side for which gabapentin has been helpful. Taking naproxen regularly. Recommended stopping naproxen given acute TN and patient is amenable to this (may also help his reflux). Takes [place] as needed (PDMP reviewed), not every day as per patient. Hold amitriptyline due to increased risk of cardiac arrhythmias but would consider restarting on discharge unless he is doing fine without it. (10) Obesity: Consider sleep apnea testing as outpatient. (11) Hypoxia: Multifactorial with presentation of TN, chronic tobacco use, obesity hypoventilation, atelactasis. No pulmonary edema on CXR or exam. Aim O2 sats > 94 % in setting of TN. (12) DVT prophylaxis: If staying beyond tomorrow would consider adding chemo prophylaxis but with anticipated d/c. SCDs Subjective Patient resting comfortably in bed when seen in ICU prior to transfer. He denies any further chest pain or shortness of breath Revisited history with patient and consistent with H&P. He is unsure regarding a lot of the details of his prior TN and medications. He was taking an aspirin but is unsure when or why this was stopped. No prior GI bleed. He continues to smoke 0.5-1 pack of cigarettes/day, also smokes. Previously managed to give up for 6 months after last heart attack and plans on going cold turkey after this one. Went back last time due to habit more than cravings (just found a cigarette one day and started back up). Does not feel he needs nicotine replacement products at present. GERD - reports no symptoms while on omeprazole and he is unsure why he is taking this. Sometimes misses doses without recurrent symptoms. Review of Systems Review of Systems: All systems reviewed & are unremarkable except as noted in HPI & below Physical Exam Constitutional: well developed and + morbidly obese; no acute distress Eyes: + anicteric sclerae; normal pupil size ENMT: external ear and nose normal, oropharynx normal Mallampati Class: III Neck: normal visual inspection, trachea midline and + thick neck Respiratory: normal respiratory effort, lungs clear to auscultation Cardiovascular: Rate/Rhythm: regular rate and regular rhythm Heart Sounds: no murmur Vessels: no JVD Extremities: + edema (trace bilaterally) Gastrointestinal (Abdomen): normal bowel sounds, soft, nontender, no hepatosplenomegaly Inspection/Auscultation: + abdomen distended (normal for patient) Musculoskeletal: no cyanosis or clubbing, extremities motor strength 5/5 Skin: no rashes, warm and dry Neurologic: moves all extremities and awake; no focal motor deficits and not confused Motor/Sensory: no sensory deficit Psychiatric: A+Ox3, euthymic affect Results & Data Vital Signs (Past 12 Hours) Vital Signs Temp Pulse Pulse Resp BP BP Pulse Ox 03/31/19 18:56 99.1 F 66 20 112/62 95 03/31/19 15:17 70 03/31/19 15:03 98.6 F 68 18 133/79 96 03/31/19 13:00 64 17 129/68 94 03/31/19 12:00 99.7 F H 74 29 H 133/74 94 03/31/19 11:00 67 26 H 131/87 93 03/31/19 10:00 97.9 F 68 18 142/88 H 94 03/31/19 09:00 68 19 138/76 96 03/31/19 08:00 98.8 F 67 20 151/81 H 96 PG Care Time/CCT Total # of Minutes Spent Total Time Spent with Patient: Total time spent is greater than 50% in coordination of care (as documented) at patient's floor/unit and/or counseling patient: (1) Gout Chronicity: chronic Gout etiology: unspecified cause Gout site: unspecified site Presence of tophus: without tophus Qualified Code(s): [id number] - Chronic gout, unspecified, without tophus (tophi) (2) HLD (hyperlipidemia) Hyperlipidemia type: mixed hyperlipidemia Qualified Code(s): E78.2 - Mixed hyperlipidemia (3) ST elevation myocardial infarction (STEMI) Involved coronary artery: unspecified coronary artery Qualified Code(s): I21.3 - ST elevation (STEMI) myocardial infarction of unspecified site (4) Chronic back pain Back pain laterality: midline Back pain location: low back pain Sciatica laterality: sciatica of right side Sciatica presence: with sciatica Qualified Code(s): M54.41 - Lumbago with sciatica, right side; G89.29 - Other chronic pain (5) GERD (gastroesophageal reflux disease) Esophagitis presence: without esophagitis Qualified Code(s): K21.9 - Gastro- esophageal reflux disease without esophagitis
[2019-03-31] MEDS: MAGNESIUM OXIDE 400 MG TAB PO SCH (20:07)
--- NOTE | 2019-04-01 04:09 | Billing Data ---
Coding Level of Care Code Critical Care 1st 30-74 mins
[2019-04-01 05:42] LABS: Estimated Average Glucose 128 mg/dl; Hemoglobin A1C 6.1 % (4.5-5.6)
[2019-04-01 06:03] LABS: Basophils # (auto) 0.02 K/uL (0-0.2); Basophils % (auto) 0.2 %; Eosinophils # (auto) 0.21 K/uL (0-0.5); Eosinophils % (auto) 1.9 %; Hematocrit (blood only) 37.2 % (42-52); Hemoglobin 12.4 g/dL (14.0-18.0); Immature Granulocytes # (auto) 0.04 K/uL (0.00-0.02); Immature Granulocytes % (auto) 0.4 %; Lymphocytes # (auto) 4.19 K/uL (1.2-3.4); Lymphocytes % (auto) 38.5 %; Mean Corpuscular Hemoglobin 32.1 pg (25-34); Mean Corpuscular Hgb Conc 33.3 g/dL (32-36); Mean Corpuscular Volume 96.4 fL (80-100); Mean Platelet Volume 9.8 fL (7.4-10.4); Monocytes # (auto) 1.12 K/uL (0.11-0.59); Monocytes % (auto) 10.3 %; Neutrophils # (auto) 5.31 K/uL (1.4-6.5); Neutrophils % (auto) 48.7 %; Platelet Count 154 K/uL (130-400); RDW Coefficient of Variation 15.2 % (11.5-14.5); RDW Standard Deviation 53.1 fL (36.4-46.3); Red Blood Count 3.86 M/uL (4.7-6.1); White Blood Count 10.89 K/uL (4.8-10.8)
[2019-04-01 06:44] LABS: BUN Creatinine Ratio 15.8 (10-20); Calcium 9.3 mg/dl (8.5-10.1); Creatinine Clr Calc Pharmacy 66.2 ml/min; Est GFR (Non-African American) 57.8; Magnesium 1.9 mg/dl (1.8-2.4); Potassium 4.1 mmol/L (3.5-5.1)
[2019-04-01] MEDS: GABAPENTIN 300 MG CAP PO SCH ×2 (08:52→14:24)
[2019-04-01] MEDS: ATORVASTATIN 40 MG TAB PO SCH (08:53)
[2019-04-01] MEDS: METOPROLOL TARTRATE 50 MG TAB PO SCH (08:53)
[2019-04-01] MEDS: MAGNESIUM OXIDE 400 MG TAB PO SCH (08:53)
[2019-04-01] MEDS: ALLOPURINOL 300 MG TAB PO SCH (08:53)
[2019-04-01] MEDS: TICAGRELOR 90 MG TAB PO SCH (08:53)
[2019-04-01] MEDS: PANTOprazole 40 MG TAB PO SCH (08:54)
[2019-04-01] MEDS: LISINOPRIL 10 MG TAB PO SCH (08:54)
[2019-04-01] MEDS: ASPIRIN 81 MG ECTAB PO SCH (08:54)
[2019-04-01] MEDS: TAMSULOSIN HCL 0.4 MG CAP PO SCH (08:54)
[2019-04-01] MEDS: INSULIN ASPART 100 UNITS/ML 3 ML PEN SC SCH ×2 (08:55→11:51)
--- NOTE | 2019-04-01 12:00 | Pharmacy Report ---
Pharmacy Glycemic Short Note 2 - Date of Service April 01, 2019 - Glycemic Short BSG Results (Last 24 hours): 03/31/19 03/31/19 04/01/19 16:34 20:44 05:41 Glucose 112 H POC Glucose 128 H 146 H 04/01/19 04/01/19 07:24 11:21 Glucose POC Glucose 110 H 113 H OUTPATIENT ANTIDIABETIC REGIMEN: * NONE * A1c: 6.1% ASSESSMENT: * Patient requiring no insulin since time of consult. Will continue with correctional insulin only. Mild hyperglycemia on admission likely stress induced. PLAN FOR INPATIENT GLYCEMIC CONTROL: * Bolus insulin * NovoLog per scale ACHS or Q6hrs while NPO * Goal Range: Low 110 mg/dL - High 140 mg/dL * Correction Factor: 30 mg/dL/unit PLAN FOR DISCHARGE: * A1c: 6.1%. Recommend healthy lifestyle modifications (diet, exercise, and smoking cessation). Monitor A1c as outpatient and consider oral therapy if appropriate at that time.
--- NOTE | 2019-04-01 15:59 | Cardiology Progress Note ---
Date of Service April 01, 2019 Assessment & Plan (1) ST elevation myocardial infarction (STEMI): 2. Ischemic cardiomyopathy 3. PVCs/AIVR 4. Hypertension 5. Dyslipidemia Patient feeling well. No recurrent anginal symptoms. No apparent access site complications. On exam today well-perfused with no significant congestion. Rare ventricular ectopy vs brief AIVR on telemetry Continue DAPT with aspirin, ticagrelor Continue metoprolol 50 mg twice daily. -- continue current lisinopril and high intensity statin. Follow-up with cardiology in 2 weeks. Will refer to cardiac rehab. Continue to titrate up beta-aleah, POLI as BP allows and consider addition of spironolactone. Subjective Feeling well. No chest pain. No other new complaints. Telemetry reviewedrun of slow PVCs vs AIVR otherwise unremarkable Review of Systems Review of Systems: All systems reviewed & are unremarkable except as noted in HPI & below Physical Exam Physical Exam: General: Comfortable, no acute distress HEENT: Sclerae anicteric, mucous membranes moist Lungs: Clear to auscultation bilaterally, no rhonchi or wheezes Cardiac: Regular rate and rhythm, no murmurs. No JVD. Abdomen: Soft, nontender, nondistended, positive bowel sounds. Extremities: Warm, well perfused, no edema. 2+ radial pulses Skin: No rashes or lesions. Neuro: Nonfocal Psych: Alert orient x3, normal affect and mood Results & Data Vital Signs (Past 12 Hours) Vital Signs Temp Pulse Pulse Resp BP Pulse Ox 04/01/19 11:53 97.7 F 60 18 127/67 93 04/01/19 08:51 69 116/63 04/01/19 07:57 99.3 F 66 18 97/60 L 90 04/01/19 07:23 69 PG Care Time/CCT Total # of Minutes Spent Total Time Spent with Patient: Total time spent is greater than 50% in coordination of care (as documented) at patient's floor/unit and/or counseling patient: (1) ST elevation myocardial infarction (STEMI) Involved coronary artery: unspecified coronary artery Qualified Code(s): I21.3 - ST elevation (STEMI) myocardial infarction of unspecified site
--- NOTE | 2019-04-01 16:20 | Discharge Summary ---
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 He notes the chest pain occurred while eating dinner after hunting today and did radiate to his L arm and was associated with some nausea and dyspnea. Dr. 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 EKG on arrival concerning for STEMI; pt taken to animal laboratory technician by Dr. Sorensen, found to have acute 100% occluded mid RCA. Underwent successful PCI of mid to distal RCA with 2 overlapping drug-eluting stents. Pt now asymptomatic on assessment in ICU. Principal Diagnosis STEMI Systolic CHF Discharge Exam Constitutional WD/WN, vitals as above + obese Eyes + anicteric sclerae ENMT external ear and nose normal, oropharynx normal Neck trachea midline, no thyromegaly Respiratory normal respiratory effort, lungs clear to auscultation Cardiovascular RRR, no murmur, no edema Chest (Breasts) Chest: normal inspection of chest Gastrointestinal (Abdomen) normal bowel sounds, soft, nontender, no hepatosplenomegaly (obese) Musculoskeletal Extremities: extremities normal to inspection; no cyanosis and no clubbing Skin no rashes, warm and dry Neurologic moves all extremities and awake; no focal motor deficits Psychiatric A+Ox3, euthymic affect Lymphatic no lymphedema Discharge Data Allergies Allergy/AdvReac Type Severity Reaction Status Date / Time Penicillins Allergy Mild HIVES Verified 03/30/19 20:21 Sulfa (Sulfonamide Allergy Unknown UNKNOWN Verified 03/30/19 20:21 Antibiotics) Consultations 03/30/19 20:08 ED Decision to Admit Stat 03/30/19 21:48 Consult Case Management - Discharge Planning Routine 03/30/19 21:49 Consult Composition Tile Layer Routine 03/30/19 21:55 Consult Cardiac Rehabilitation Routine Procedures Performed Operation Date: 03/30/19 20:00 Actual Procedures p Aspiration/PCI w/SAFIA for Stemi - Zeb Sorensen MD s Cath, Left with Cors and Vent - Zeb Sorensen MD s Cineradiography w/Routine Exam - Zeb Sorensen MD Ordered Studies 03/30/19 20:02 CL Cath Imgs for PACS use only Stat Echocardiogram CXR Hospital Course (1) ST elevation myocardial infarction (STEMI): Admitted and taken urgently to cardiac animal laboratory technician, had 2 stents overlapping placed to an acutely 100% occluded RCA Troponin peaked at 91 and then trended back downward -continue ASA 81mg daily, Brillinta 90mg po bid, Metoprolol 50mg po bid, Lisinopril 10mg po daily, and increased dose of Atorvastatin 80mg daily -he can restart his niacin, but no need for gemfibrozil with high intensity statin -follow up with Cardiology and will need cardiac rehab as outpt -Smoking cessation as below -Stop naproxen -Appreciate cardiology management Had 9 beats of accelerated idioventricular rhythm in 24 hrs prior to discharge, but is on beta aleah, is not a candidate for LifeVest as per my discussion with Cardio (2) Systolic CHF: ECHO here with LVEF 30-35%, severe hypokinesis of inferior wall and inferior adjacent septum No evidence of volume overload on day of discharge -advised to watch for edema, worsening SOB, weight gain -eat low Na+ diet and fluid restrict to 1800mL after discharge -started metoprolol tartrate 50mg po bid here and can convert to Toprol XL as outpt at Cardiology follow up if tolerating that dose -started lisinopril 10mg daily -no need for diuretics (3) Current every day smoker: Extensively counselled on importance of quitting smoking. Declines nicotine replacement products of medications at this time as was successful for 6 months quitting cold turkey after his last [place]. Plans to quit cold turkey with his . (4) HTN (hypertension): BP/HR stable on current regimen with lisinopril and metoprolol Stopped amlodipine to allow up titration of cardiac specific medication (may also help with reflux) (5) Hypoxia: Multifactorial with presentation of [place], chronic tobacco use, obesity hypoventilation, atelactasis. No pulmonary edema on CXR or exam. Now improved and off O2 at time of dc (6) NSVT (nonsustained ventricular tachycardia): none further except accelerated idioventricular rhythm as above -lytes replaced, metoprolol started (7) CAD (coronary artery disease): With h/o revious stent, now with STEMI as above -restarted ASA and started Brilinta, lisinopril, and increased statin to 80mg, started metoprolol (8) Prediabetes: hgbA1C here in prediabetic range at 6.1% -counseled on importance of low carb diet, weight loss -follow with PCP no meds needed at this time (9) Obesity: BMI 36.6 Counseled on low carb diet, weight loss Had witnessed apneas while sleeping in ICU Pulm recommended sleep apnea testing as outpatient. (10) Chronic back pain: Under pain management with unsuccessful prior injections. Has some lumbar radicular symptoms on right side for which gabapentin has been helpful. Taking naproxen regularly. Recommended stopping naproxen given acute [place] and patient is amenable to this (may also help his reflux). Takes [place] as needed (PDMP reviewed), not every day as per patient. Held amitriptyline due to increased risk of cardiac arrhythmias but will restart on discharge as he will likely have pain without NSAIDs (11) GERD (gastroesophageal reflux disease): Unclear from his history if he still needs omeprazole fdc as he gets no symptoms when he doesn't take it. No Hx GI bleed. However, advised to try and wean outside of acute [place] setting as if he has recurrent chest pain will be difficult to tell if from reflux vs. cardiac. Continue PPI (12) HLD (hyperlipidemia): Switched to atorvastatin 80mg PO daily No prior Hx triglyceride pancreatitis. Will d/c gemfibrozil -ok to continue niacin although could be worsening his glucose (13) Gout: Continue home dose allopurinol (14) BPH (benign prostatic hyperplasia): Continue home dose tamsulosin (15) DVT prophylaxis: SCDs Dispo-stable for dc to home Total Time Total Time Spent Total Time Spent (In Minutes): 35 min Total Time Includes: Examination of the Patient, Discharge Planning, Medication Reconciliation and Communication With Other Providers (Cardiology, Dr. Sorensen) Discharge Plan Discharge Items Patient Disposition: Home - Self-Care Reason For Visit: STEMI Discharge Diagnosis: ST elevation myocardial infarction, Systolic Congestive Heart Failure Condition on Discharge: Fair Activity: As commented below Lifting: No more than 5 pounds Bathing: No limitations Exercise/Sports: Wait until after follow-up appointment Driving/Machine Use: Resume 3 days after discharge Non-emergency contact: Primary Care Provider and Afterschool Call non-emergency contact if: you have any medication questions, your symptoms worsen, your pain is not controlled, your pain is worsening, your pain is u nusual for you, your pain is concerning for you, your wound has increased redness, your wound has increased drainage and your wound pain has increased Follow-up/Referrals: Zeb Sorensen MD [Physician] - 04/19/19 2:00 pm (Please, follow up at [facility] Cardiology Office with Dr. Sorensen on MondayApril 19 at 2:15 pm (arrive 2:00 pm). *The office is located in [address] of [facility], next to this hospital. If you need to change this appointment, call the office at [phone].) Gregory Noonan M.D. [Primary Care Provider] - 04/05/19 10:20 am (Please, follow up with Dr. Noonan on MondayApril 05 at 10:20 am. *If you need to change this appointment, call the office at [phone].) Diet: Carb Consistent or DM2 and Low Sodium (2gm) Fluids: 1800ml (7 cups) Addtl Attending Provider Instructions: You were admitted with a heart attack and had 2 stents placed to open up the blockage. It is very important that you take all the new medications exactly as prescribed. Some of your old medications were STOPPED. You were also found to have PRE-diabetes and should follow a low carbohydrate diet to prevent you from getting Diabetes. It is VERY important for you to STOP SMOKING to prevent future heart attack and stroke. You were noted to stop breathing when you sleep and should have a SLEEP STUDY as an outpatient o look for SLEEP APNEA. Please follow up with Cardiology and your PCP as scheduled for you. Home Care: * Take your medications exactly as directed. Don't skip doses. * Remember that recovery after a heart attack takes time. Plan to rest for at lease 4-8 weeks while you recover. Then return to normal activity when your doctor says it's okay. * Ask your doctor about joining a heart rehabilitation program. * Tell your doctor if you are feeling depressed. Feelings of sadness are common after a heart attack, but it is important that you speak to someone if you are feeling overwhelmed by these feelings. * If you are having chest pain, call 911 for an ambulance. Do NOT drive yourself to the hospital. * Ask your family members to learn CPR. * Learn to take your own blood pressure and pulse. Keep a record of your results. Ask your doctor when you should seek emergency medical attention. He or she will tell you which blood pressure reading is dangerous. Lifestyle Changes: * Maintain a healthy weight. Get help to lose any extra pounds. * Cut back on salt. * Limit canned, dried, packaged, and fast foods. * Don't add salt to your food. * Season foods with herbs instead of salt when you cook. * Break the smoking habit. Enroll in a stop-smoking program to improve your chances of success. * Limit fatty foods. * Ask your doctor about having your lipid levels checked regularly. * Build up your activity according to your doctor's recommendation. * Ask your doctor when it's okay to resume sexual activity. * Tell your doctor about any erectile dysfunction (ED) medication you are taking. Some ED medications are not safe if you take certain heart medications. * Try to manage stress. Follow Up: It is important for you to keep your follow up appointments with your medical provider. Call your Primary Care doctor if any of the following symptoms or problems start or get worse: * Shortness of breath or difficulty breathing * Wake up at night short of breath * Chest pain * Cough * Swelling of your hands, feet, or legs * More fatigued or tired with your normal activity * Palpitations - sudden fast heart beats WEIGHT * Weigh yourself every morning after using the bathroom. * Use the same scale. * Wear the same amount of clothing. * Write your weight down on a chart. * Call your Primary Care doctor if you gain more than 2-3 pounds in 1-2 days. MEDICATIONS * Use this discharge instruction sheet for medication instructions. * Take your medications at the time your doctor ordered. * Do not skip a dose of your medicines. * If you miss a dose of medicine, take it as soon as possible, but DO NOT DOUBLE A DOSE. * Read your medicine information when you get home. * Know all of the side effects of your medicine. If in doubt, ask your pharmacist * Call your Primary Care doctor's office if you have any side effects. * Be sure all of your doctors know what medicine and herbs you take (including cold, flu, and herbal medicine). Take the following with you to your follow-up doctor appointments: * Weight Chart * Medication List * List of questions Do not drink excessive alcohol, beer or wine. ACTIVITY RECOMMENDATIONS: Excess manipulation of the wrist should be avoided for the next 24-48 hours. * No lifting over 2 pounds (approximately a 1/2 gallon of milk) with the utilized arm for 24 hours. * No strenuous activity such as bowling or tennis for 3 days. * Keep the site of the procedure covered with a bandage for 24 hours. *You may shower the day after the procedure. Do not take a tub bath or submerge the puncture site in water for the next 3 days. *Do not operate any motorized equipment for 3 days. SPECIAL CARE INSTRUCTIONS: The site may be slightly bruised and sore following your procedure. Should any of the following occur, contact the Dr. who performed your procedure. 1. Redness/inflammation, swelling, chills, or fever, or colored drainage at procedure site within 3-7 days after your procedure. 2. Coldness, discoloration, ongoing numbness, severe pain, or swelling. Expect mild tingling of hand and tenderness at the puncture site for up to three days. If this persists beyond three days, or other symptoms develop, notify the Dr. who performed your procedure. BLEEDING: If the procedure site on your wrist begins to bleed, do not panic 1. Place 1 or 2 fingers firmly just slightly above the insertion site to stop the bleeding. You may be able to feel your pulse as you hold pressure. 2. Lift your finger after 5 minutes to see if the bleeding has stopped. 3. Once the bleeding has stopped, gently wipe the wrist area clean with a bandage. * If the bleeding from your wrist does not stop after 10 minutes, or if there is a large amount of bleeding or spurting, call 911 (do not drive yourself to the hospital). SKIN IRRITATION: * You may experience some redness and/or swelling in the area where radiation was administered. If any skin irritation occurs, please contact your family physician. FOLLOW UP VISIT: Keep any scheduled doctor appointments. Pending Studies at Discharge: No Stand-Alone Forms: Call Back Authorization, [facility] [employer] Smoking Cessation Medications and DC Order Prescriptions: New atorvastatin 40 mg Tablet 80 mg PO QAM Qty: 30 RF: 0 lisinopril 10 mg Tablet 10 mg PO QAM Qty: 30 RF: 0 metoprolol tartrate 50 mg Tablet 50 mg PO BID Qty: 60 RF: 0 nitroglycerin [Nitrostat] 0.4 mg Tablet, Sublingual 0.4 mg sublingual PRN PRN (Reason: chest pain) Qty: 10 RF: 0 Brilinta 90 mg Tablet 90 mg PO BID Qty: 60 RF: 0 aspirin [Ecotrin Low Strength] 81 mg Tablet,Delayed Release (Dr/Ec) 81 mg PO QAM Qty: 30 RF: 0 Continued hydrocodone-acetaminophen 5-325 mg tablet 1 tab PO Q6H PRN (Reason: Pain) RF: 0 niacin 500 mg tablet extended release 24 hr 1,000 mg PO HS RF: 0 amitriptyline 50 mg tablet 50 mg PO HS RF: 0 tamsulosin 0.4 mg capsule 0.4 mg PO QAM RF: 0 gabapentin 300 mg capsule 600 mg PO TID RF: 0 omeprazole 20 mg capsule,delayed release(DR/EC) 20 mg PO DAILY RF: 0 allopurinol 300 mg tablet 300 mg PO DAILY RF: 0 [employer] 0.4-300-250 mg-mcg-mcg Tablet 1 tab PO DAILY RF: 0 cholecalciferol (vitamin D3) [Vitamin D3] 1,000 unit Tablet,Chewable 5,000 unit PO DAILY RF: 0 Discontinued atorvastatin 20 mg tablet 20 mg PO HS RF: 0 amlodipine 5 mg tablet 5 mg PO DAILY RF: 0 gemfibrozil 600 mg tablet 600 mg PO QAM RF: 0 naproxen 500 mg Tablet 500 mg PO BID RF: 0 Discharge Orders: Discharge Order (Routine); Ordered 04/01/19 Ordered By: Ramila Reardon/Other Patient Handouts: Prediabetes, A1C Admission Data Admit Date/Time: 03/30/19 21:49 Attending Provider: Ramila Hanna Admit Provider: Zeb Sorensen Primary Care Provider: Gregory Noonan Other Providers: Milton Dale ; Mathew Lyn
== END 2019-04-01 17:02 | disposition home or self-care (01) | DRG 247 ==
LOC: ED 19:31 → CC 20:13 → SUATTDRO 21:49 → 1E 21:49 → 2E 03-31 14:57